=== PATIENT | female | born 1990 | race Hispanic/Latino ===

== ENCOUNTER 2021-07-20 10:59 | Emergency (ER) | payer SELFPAY ==
[2021-07-20 13:18] LABS: Absolute Lymphocytes (CBC) 1.9 K/uL (0.7-4.9); Hematocrit 41.5 % (36.0-45.0); Lymphocytes % 19.3 % (15.3-44.8); MPV 7.2 fL (7.6-11.3); RBC Red Blood Cell Count 4.79 M/uL (3.86-4.86)
[2021-07-20 13:35] LABS: Bilirubin Total 0.7 mg/dL (0.2-1.0); Potassium 4.2 mmol/L (3.5-5.1); Protein, Total 7.8 g/dL (6.4-8.2)
[2021-07-20] MEDS ORDERED: MORPHINE 4 MG/ML SYR ONE (13:41)
[2021-07-20] MEDS ORDERED: ONDANSETRON 4 MG/2 ML VIAL ONE (13:41)
[2021-07-20 13:49] LABS: Urine Blood 2+ (Negative); Urine Glucose Negative (Negative); Urine Protein Trace (Negative); Urine Specific Gravity >=1.030 (1.005-1.030)
--- NOTE | 2021-07-20 14:27 | RAD REPORT ---
EXAM DESCRIPTION: CTAbdomen Pelvis W Contrast - 07/20/2021 2:16 pm CLINICAL HISTORY: Abdominal pain. Abdominal pain, acute, nonlocalized COMPARISON: No comparisons TECHNIQUE: Biphasic CT imaging of the abdomen and pelvis was performed with 100 ml non-ionic IV cont rast. All CT scans are performed using dose optimization technique as appropriate and may include automated exposure control or mA/KV adjustment according to patient size. FINDINGS: The lung bases are clear. The liver demonstrates diffuse fatty infiltration. Spleen, pancreas, adrenal glands and kidneys are w ithin normal limits. Cholecystectomy. No bowel obstruction, free air, free fluid or abscess. 6-7 cm length of sigmoid colon in the left low er quadrant shows moderate surrounding inflammation compatible with diverticulitis. No abscess is see n. The appendix is normal. No evidence of significant lymphadenopathy. No suspicious bony findings. IMPRESSION: Moderate inflammation involving left lower quadrant 6-7 cm length of sigmoid colon parris tible with acute diverticulitis.
[2021-07-20] MEDS ORDERED: FENTANYL CITR 100 MCG/2 ML ONE (15:06)
[2021-07-20] MEDS ORDERED: DICYCLOMINE HCL 20 MG/2 ML AMP IM ONE (15:06)
[2021-07-20] MEDS ORDERED: Levofloxacin 750mg IV 750 MG/150 ML BAG IV ONE (16:47)
[2021-07-20] MEDS ORDERED: METRONIDAZOLE 500mg IVPB 500 MG/100 ML BAG IV ONE (16:47)
[2021-07-20] MEDS ORDERED: PROMETHAZINE INJ 25 MG/ML AMP ONE (18:11)
[2021-07-20] MEDS ORDERED: FAMOTIDINE 20 MG/2 ML VIAL IV ONE (18:11)
--- NOTE | 2021-07-20 19:09 | EDPHYS ---
Physician Documentation [facility] Name: Tish Martinez Age: 31 yrs Sex: Female : 1990 Arrival Date: 07/20/2021 Time: 11:00 Bed 5 Private MD: ED Physician Lior Avendano HPI: 07/20 11:36 This 31 yrs old Female presents to ER via Ambulatory with complaints of Chest jmm Pain, Abdominal Pain, Numbness Of Arm - right. 11:36 The patient presents with abdominal pain. Onset: The symptoms/episode began/occurred jmm gradually, 1 day(s) ago. The symptoms do not radiate. Associated signs and symptoms: Pertinent positives: nausea, Pertinent negatives: diarrhea, vomiting. The symptoms are described as achy. Modifying factors: The symptoms are alleviated by nothing, the symptoms are aggravated by nothing. The patient has not experienced similar symptoms in the past. 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 - Social history:: Smoking status: Patient denies any tobacco usage or history of. ROS: 11:36 Cardiovascular: Negative for chest pain, palpitations, and edema, Respiratory: Negative jmm for shortness of breath, cough, wheezing, and pleuritic chest pain. 11:36 Constitutional: Positive for body aches, chills. 11:36 Abdomen/GI: Positive for abdominal pain, nausea. 11:36 All other systems are negative. Exam: 11:36 Constitutional: This is a well developed, well nourished patient who is awake, alert, jmm and in no acute distress. Head/Face: atraumatic. Eyes: EOMI, no conjunctival erythema appreciated ENT: Moist Mucus Membranes Neck: Trachea midline, Supple Chest/axilla: Normal chest wall appearance and motion. Cardiovascular: Regular rate and rhythm. No edema appreciated Respiratory: Normal respirations, no respiratory distress appreciated 11:36 Skin: General appearance color normal MS/ Extremity: Moves all extremities, no obvious deformities appreciated, no edema noted to the lower extremities Neuro: Awake and alert Psych: Behavior is normal, Mood is normal, Patient is cooperative and pleasant 11:36 Abdomen/GI: Inspection: abdomen appears normal, Bowel sounds: normal, Palpation: soft, mild abdominal tenderness, in the left lower quadrant. Vital Signs: 11:30 BP 137 / 64; Pulse 66; Resp 15; Temp 97.3; Pulse Ox 99% ; Height 5 ft. 0 in. (152.40 jl7 cm); Pain 9/10; 15:12 BP 146 / 76; Pulse 65; Resp 16 S; Pulse Ox 100% on R/A; jd3 16:11 BP 109 / 72; Pulse 63; Resp 16 S; Pulse Ox 100% on R/A; jd3 18:15 BP 107 / 61; Pulse 62; Resp 16 S; Pulse Ox 100% on R/A; jd3 MDM: 11:36 Patient medically screened. [facility] 19:07 Data reviewed: vital signs, nurses notes. Counseling: I had a detailed discussion with feliz the patient and/or guardian regarding: the historical points, exam findings, and any diagnostic results supporting the discharge/admit diagnosis, lab results, radiology results, the need for outpatient follow up, to return to the emergency department if symptoms worsen or persist or if there are any questions or concerns that arise at home. Response to treatment: the patient's symptoms have markedly improved after treatment, and as a result, I will discharge patient. ED course: Patient is alert and nontoxic in appearance NAD. Patient advised to follow-up with GI for further evaluation. Patient otherwise given strict return precautions. Patient understood agrees plan of care.. 07/20 11:43 Order name: CBC with Diff; Complete Time: 13:29 [facility] 07/20 11:43 Order name: CMP; Complete Time: 13:39 [facility] 07/20 11:43 Order name: Lipase; Complete Time: 13:39 [facility] 07/20 11:55 Order name: Troponin High Sensitivity; Complete Time: 13:39 [facility] 07/20 13:49 Order name: Urine Dipstick-Ancillary; Complete Time: 13:57 [facility] 07/20 11:43 Order name: CT Abd/Pelvis - IV Contrast Only; Complete Time: 14:29 [facility] 07/20 11:43 Order name: IV Saline Lock; Complete Time: 13:50 [facility] 07/20 11:43 Order name: Labs collected and sent; Complete Time: 13:13 [facility] 07/20 11:43 Order name: Urine Dipstick-Ancillary (obtain specimen); Complete Time: 13:50 [facility] 07/20 11:43 Order name: Urine Test (obtain specimen); Complete Time: 13:50 [facility] 07/20 11:55 Order name: EKG - Nurse/Tech; Complete Time: 13:27 [facility] Administered Medications: 13:49 Drug: morphine 4 mg Route: IVP; Site: left antecubital; jd3 14:40 Follow up: Response: No adverse reaction; RASS: Alert and Calm (0) jd3 13:50 Drug: Zofran (Ondansetron) 4 mg Route: IVP; Site: left antecubital; jd3 14:50 Follow up: Response: No adverse reaction jd3 15:11 Drug: fentaNYL (PF) 50 mcg Route: IVP; Site: left antecubital; jd3 16:51 Follow up: Response: No adverse reaction; RASS: Alert and Calm (0) ll1 15:11 Drug: Dicyclomine 20 mg Route: IM; Site: right gluteus; jd3 16:51 Follow up: Response: No adverse reaction ll1 16:49 Drug: Flagyl (metroNIDAZOLE) 500 mg Volume: 100 ml; Route: IVPB; Rate: 200 ml/hr; ll1 Infused Over: 30 mins; Site: left antecubital; 19:15 Follow up: Response: No adverse reaction; IV Status: Completed infusion jd3 18:16 Drug: LevaQUIN (levofloxacin) 750 mg Route: IVPB; Site: left antecubital; jd3 19:43 Follow up: Response: No adverse reaction; IV Status: Completed infusion; IV Intake: ll3 200ml 18:16 Drug: Promethazine 12.5 mg Route: IVP; Site: left antecubital; jd3 19:15 Follow up: Response: No adverse reaction jd3 18:16 Drug: Pepcid (famotidine) 20 mg Route: IVP; Site: left antecubital; jd3 19:15 Follow up: Response: No adverse reaction jd3 Disposition Summary: 07/20/21 19:09 Discharge Ordered Location: Home [facility] Condition: Stable [facility] Diagnosis - Acute Diverticulitis without perforation [facility] Followup: [facility] - With: Ash Blackwell MD - When: 2 - 3 days - Reason: Recheck today's complaints, Continuance of care, Re-evaluation by your physician Discharge Instructions: - Discharge Summary Sheet [facility] - Diverticulitis [facility] Forms: - Medication Reconciliation Form [facility] - Thank You Letter [facility] - Antibiotic Education [facility] - Prescription Opioid Use [facility] - Work release form Prescriptions: - ondansetron 4 mg Oral tablet,disintegrating - take 1 tablet by ORAL route every 4-6 hours; 20 tablet; Refills: 0, Product [facility] Selection Permitted - Tylenol-Codeine #3 300 mg-30 mg Oral - take 1 tablet by ORAL route every 4-6 hours; 20 tablet; Refills: 0, Product [facility] Selection Permitted - levofloxacin 750 mg Oral Tablet - take 1 tablet by ORAL route once daily for 10 days; 10 tablet; Refills: 0, [facility] Product Selection Permitted - Flagyl 500 mg Oral Tablet - take 1 tablet by ORAL route every 6 hours for 10 days; 40 tablet; Refills: 0, [facility] Product Selection Permitted Signatures: Dispatcher [employer] Lalo Irvin PA PA jmm Leal, Jahala RN RN jl7 Herberth Torres RN RN jKailey Zarate RN RN ll1 Lynda Ferris RN ll3 Corrections: (The following items were deleted from the chart) 11:34 11:33 Allergies: No Known Allergies; armando roberts
--- NOTE | 2021-07-20 19:09 | ER ---
Nurse's Notes [facility] Name: Tish Martinez Age: 31 yrs Sex: Female : 1990 Arrival Date: 07/20/2021 Time: 11:00 Bed 5 Private MD: Diagnosis: Acute Diverticulitis without perforation Presentation: 07/20 11:06 Note Called pt from [facility], no response. jl7 11:30 Chief complaint: Patient states: Intermittent chest pressure x 2 days, reproducible jl7 with palpation. Lower abdominal cramping and intermittent right arm numbness since yesterday. Denies N/V/D. Coronavirus screen: At this time, the client does not indicate any symptoms associated with coronavirus-19. Ebola Screen: No symptoms or risks identified at this time. Initial Sepsis Screen: Does the patient meet any 2 criteria? No. Patient's initial sepsis screen is negative. Does the patient have a suspected source of infection? No. Patient's initial sepsis screen is negative. Risk Assessment: Do you want to hurt yourself or someone else? Patient reports no desire to harm self or others. Onset of symptoms was July 18, 2021. 11:30 Method Of Arrival: Ambulatory jl7 11:30 Acuity: DANIEL 3 jl7 Triage Assessment: 11:33 General: Appears in no apparent distress. uncomfortable, Behavior is calm, cooperative, jl7 appropriate for age. Pain: Complains of pain in right lower quadrant and left lower quadrant Pain currently is 9 out of 10 on a pain scale. Quality of pain is described as crampy. Cardiovascular: Patient's skin is warm and dry. Respiratory: Airway is patent Respiratory effort is even, unlabored, Respiratory pattern is regular, symmetrical. GI: Patient currently denies diarrhea, nausea, vomiting. Derm: Skin is pink, warm \T\ dry. 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 - Social history:: Smoking status: Patient denies any tobacco usage or history of. Screenin:52 Abuse screen: Denies threats or abuse. Nutritional screening: No deficits noted. jd3 Tuberculosis screening: No symptoms or risk factors identified. Fall Risk Ambulatory Aid- None/Bed Rest/Nurse Assist (0 pts). Gait- Normal/Bed Rest/Wheelchair (0 pts) Mental Status- Oriented to own ability (0 pts). Total [place] Fall Scale indicates No Risk (0-24 pts). Assessment: 13:25 General: Appears in no apparent distress. uncomfortable, Behavior is calm, cooperative, jd3 appropriate for age. General:. Pain: Complains of pain in right lower quadrant and left lower quadrant Pain does not radiate. Quality of pain is described as sharp, Pain began 1 week ago. Neuro: Mackey Agitation-Sedation Scale (RASS): 0 - Alert and Calm Level of Consciousness is awake, alert, obeys commands, Oriented to person, place, time, situation. Cardiovascular: Capillary refill < 3 seconds Patient's skin is warm and dry. Rhythm is regular. Respiratory: Airway is patent Respiratory effort is even, unlabored, Respiratory pattern is regular, symmetrical, Denies cough, shortness of breath. GI: Abdomen is non-distended, Abd is soft X 4 quads Abdomen is tender to palpation in right lower quadrant and left lower quadrant Reports lower abdominal pain, Patient currently denies constipation, diarrhea, nausea, vomiting. : No signs and/or symptoms were reported regarding the genitourinary system. Denies burning with urination, discharge, urinary frequency, urgency. EENT: No signs and/or symptoms were reported regarding the EENT system. Derm: Skin is intact, Skin is dry, Skin is normal, Skin temperature is warm. Musculoskeletal: Circulation, motion, and sensation intact. Range of motion: intact in all extremities. 15:12 Reassessment: Patient appears in no apparent distress at this time. No changes from jd3 previously documented assessment. Patient and/or family updated on plan of care and expected duration. Pain level reassessed. Patient is alert, oriented x 3, equal unlabored respirations, skin warm/dry/pink. 16:11 Reassessment: Patient appears in no apparent distress at this time. No changes from jd3 previously documented assessment. Patient and/or family updated on plan of care and expected duration. Pain level reassessed. Patient is alert, oriented x 3, equal unlabored respirations, skin warm/dry/pink. 18:15 Reassessment: Patient appears in no apparent distress at this time. No changes from jd3 previously documented assessment. Patient and/or family updated on plan of care and expected duration. Pain level reassessed. Patient is alert, oriented x 3, equal unlabored respirations, skin warm/dry/pink. Vital Signs: 11:30 BP 137 / 64; Pulse 66; Resp 15; Temp 97.3; Pulse Ox 99% ; Height 5 ft. 0 in. (152.40 jl7 cm); Pain 9/10; 15:12 BP 146 / 76; Pulse 65; Resp 16 S; Pulse Ox 100% on R/A; jd3 16:11 BP 109 / 72; Pulse 63; Resp 16 S; Pulse Ox 100% on R/A; jd3 18:15 BP 107 / 61; Pulse 62; Resp 16 S; Pulse Ox 100% on R/A; jd3 ED Course: 11:00 Patient arrived in ED. am2 11:04 Lalo Arora PA is PHCP. [facility] 11:04 Lior Avendano MD is Attending Physician. [facility] 11:33 Triage completed. jl7 11:33 Arm band placed on right wrist. jl7 13:01 Herberth Torres, BILL is Primary Nurse. jd3 13:12 Missed attempt(s): 22 gauge in right antecubital area. Bleeding controlled, band aid jd3 applied, catheter tip intact. 13:12 Initial lab(s) drawn, by [facility], sent to lab. jd3 13:15 Missed attempt(s): 22 gauge in left antecubital area. Bleeding controlled, band aid jd3 applied, catheter tip intact. 13:32 Missed attempt(s): 22 gauge in right forearm. Bleeding controlled, band aid applied, ll1 catheter tip intact. 13:35 Inserted saline lock: 22 gauge in left antecubital area, using aseptic technique. ll1 13:52 Patient has correct armband on for positive identification. Bed in low position. Call jd3 light in reach. Side rails up X 1. Client placed on continuous cardiac and pulse oximetry monitoring. NIBP monitoring applied. school bus monitor on. Pulse ox on. NIBP on. 13:53 Patient maintains SpO2 saturation greater than 95% on room air. jd3 14:18 CT Abd/Pelvis - IV Contrast Only In Process Unspecified. EDMS 19:08 Ash Blackwell MD is Referral Physician. m 20:32 No provider procedures requiring assistance completed. IV discontinued, intact, ll3 bleeding controlled, No redness/swelling at site. Pressure dressing applied. Administered Medications: 13:49 Drug: morphine 4 mg Route: IVP; Site: left antecubital; jd3 14:40 Follow up: Response: No adverse reaction; RASS: Alert and Calm (0) jd3 13:50 Drug: Zofran (Ondansetron) 4 mg Route: IVP; Site: left antecubital; jd3 14:50 Follow up: Response: No adverse reaction jd3 15:11 Drug: fentaNYL (PF) 50 mcg Route: IVP; Site: left antecubital; jd3 16:51 Follow up: Response: No adverse reaction; RASS: Alert and Calm (0) ll1 15:11 Drug: Dicyclomine 20 mg Route: IM; Site: right gluteus; jd3 16:51 Follow up: Response: No adverse reaction ll1 16:49 Drug: Flagyl (metroNIDAZOLE) 500 mg Volume: 100 ml; Route: IVPB; Rate: 200 ml/hr; ll1 Infused Over: 30 mins; Site: left antecubital; 19:15 Follow up: Response: No adverse reaction; IV Status: Completed infusion jd3 18:16 Drug: LevaQUIN (levofloxacin) 750 mg Route: IVPB; Site: left antecubital; jd3 19:43 Follow up: Response: No adverse reaction; IV Status: Completed infusion; IV Intake: ll3 200ml 18:16 Drug: Promethazine 12.5 mg Route: IVP; Site: left antecubital; jd3 19:15 Follow up: Response: No adverse reaction jd3 18:16 Drug: Pepcid (famotidine) 20 mg Route: IVP; Site: left antecubital; jd3 19:15 Follow up: Response: No adverse reaction jd3 Intake: 19:43 IV: 200ml; Total: 200ml. ll3 Outcome: 19:09 Discharge ordered by . jmm 20:32 Discharged to home ambulatory. ll3 20:32 Condition: stable 20:32 Discharge instructions given to patient, family, Instructed on discharge instructions, follow up and referral plans. medication usage, Demonstrated understanding of instructions, follow-up care, medications, Prescriptions given X 4. 20:33 Patient left the ED. ll3 Signatures: Dispatcher [employer] EDMS Lalo Arora PA PA jmm Leal, Jahala, RN RN jl7 Shayy Hernandez Jonathon, RN RN jKailey Zarate RN RN ll1 Lynda Ferris RN RN ll3 Corrections: (The following items were deleted from the chart) 11:34 11:33 Allergies: No Known Allergies; armando jlMarquez
[2021-07-20 20:59] VITALS: TEMP 97.3
[2021-07-20 21:00] VITALS: O2SAT 100
[2021-07-20 21:03] VITALS: BP 107/61
--- NOTE | 2021-07-21 07:32 | EKG ---
Test Date: 2021-07-20 Test Time: 13:21:00 Manager Transportation: MIGUEL MEASUREMENT RESULTS: Intervals: Rate: 60 UT: 146 QRSD: 74 QT: 388 QTc: 388 [place]: P: 44 UT: 146 QRS: 61 T: 45 INTERPRETIVE STATEMENTS: Normal sinus rhythm Normal ECG No previous ECG available for comparison Electronically Signed On 07-21-21 07:29:56 CDT by David Merlos
== END 2021-07-20 20:33 | disposition home or self-care (01) ==
LOC: ER 10:59
DX: K57.32 Diverticulitis of large intestine without perforation or abscess without bleeding (principal)
CPT/HCPCS: 36415; 74177; 80053; 81003; 83690; 84484; 85025; 93005; 96365; 96366; 96372; 96375; 99285; J0500; J2405; J2550; J3010; J3490; Q9967

== ENCOUNTER 2022-05-08 20:27 | Emergency (ER) | payer SELFPAY ==
[2022-05-08 21:16] LABS: Urine Blood Trace-intact (Negative); Urine Glucose Negative (Negative); Urine Protein Negative (Negative); Urine Specific Gravity 1.015 (1.005-1.030); Urine pH 8.5 (5.0-7.0)
[2022-05-08 21:31] LABS: Urine Specific Gravity/Preg 1.015 (1.005-1.030)
[2022-05-08] MEDS ORDERED: ONDANSETRON 4 MG/2 ML VIAL ONE (21:36)
[2022-05-08] MEDS ORDERED: NA CHLORIDE 0.9% 1,000 ML ONE (21:36)
[2022-05-08] MEDS ORDERED: HYDROMORPHONE HCL 1 MG/ML INJ ONE (21:36)
[2022-05-08 21:54] LABS: Urine Bacteria <20 /HPF (<20); Urine Mucus Slight /HPF (None Seen); Urine RBC None Seen /HPF (None Seen)
[2022-05-08 21:56] LABS: Absolute Lymphocytes (CBC) 1.5 K/uL (0.7-4.9); Hematocrit 43.1 % (36.0-45.0); Lymphocytes % 10.1 % (15.3-44.8); MCV 86.5 fL (80-100); MPV 7.5 fL (7.6-11.3); RBC Red Blood Cell Count 4.99 M/uL (3.86-4.86)
[2022-05-08 22:34] LABS: Albumin 4.3 g/dL (3.4-5.0); Bilirubin Total 0.7 mg/dL (0.2-1.0); Potassium 3.6 mmol/L (3.5-5.1); Protein, Total 8.1 g/dL (6.4-8.2)
--- NOTE | 2022-05-09 00:24 | ER ---
Nurse's Notes [facility] Name: Tish Martinez Age: 32 yrs Sex: Female : 1990 Arrival Date: 05/08/2022 Time: 20:31 Bed 7 Private MD: Diagnosis: Diverticulitis of large intestine without perforation or abscess without bleeding Presentation: 05/08 20:53 Chief complaint: Patient states: C/o abdominal pain, I ate crawfish yesterday and I ll3 have been vomiting ever since. Coronavirus screen: Vaccine status: Patient reports being unvaccinated. muscle pain, nausea, vomiting. Ebola Screen: No symptoms or risks identified at this time. Risk Assessment: Do you want to hurt yourself or someone else? Patient reports no desire to harm self or others. Onset of symptoms was May 07, 2022. 20:53 Method Of Arrival: Ambulatory 3 20:53 Acuity: DANIEL 3 3 05/09 02:35 Initial Sepsis Screen: Does the patient meet any 2 criteria? No. Patient's initial aa9 sepsis screen is negative. Does the patient have a suspected source of infection? No. Patient's initial sepsis screen is negative. Triage Assessment: 05/08 21:00 General: Appears in no apparent distress. obese, well groomed, Behavior is cooperative, aa9 anxious. Pain: Complains of pain in pelvis. 21:00 Neuro: Level of Consciousness is awake, alert, obeys commands, Oriented to person, aa9 place, time, situation. Cardiovascular: Patient's skin is warm and dry. Respiratory: Airway is patent Respiratory effort is even, unlabored. GI: Abdomen is obese, Reports diarrhea, nausea, vomiting. : No signs and/or symptoms were reported regarding the genitourinary system. Derm: Skin is intact, is healthy with good turgor. 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 - Social history:: Smoking status: Patient/guardian denies using tobacco. Screenin:04 [facility] ED Fall Risk Assessment (Adult) History of falling in the last 3 months, aa9 including since admission No falls in past 3 months (0 pts) Confusion or Disorientation No (0 pts) Intoxicated or Sedated No (0 pts) Impaired Gait No (0 pts) Mobility Assist Device Used No (0 pt) Altered Elimination No (0 pt) Score/Fall Risk Level 0 - 2 = Low Risk Oriented to surroundings, Educated pt \T\ family on fall prevention, incl call for assistance when getting out of bed. Abuse screen: Denies threats or abuse. Denies injuries from another. Nutritional screening: Has had N/V for 3 or more days. Tuberculosis screening: No symptoms or risk factors identified. Assessment: 22:30 Reassessment: Patient appears in no apparent distress at this time. Patient and/or aa9 family updated on plan of care and expected duration. Pain level reassessed. Patient is alert, oriented x 3, equal unlabored respirations, skin warm/dry/pink. GI: Abdomen is obese, Reports nausea, vomiting. 22:30 Pain: Complains of pain in pelvis. Respiratory: Airway is patent Respiratory effort is aa9 even, unlabored. 05/09 00:43 Reassessment: Patient appears in no apparent distress at this time. Patient and/or aa9 family updated on plan of care and expected duration. Pain level reassessed. Patient is alert, oriented x 3, equal unlabored respirations, skin warm/dry/pink. discharge pending IV medication infusion. 02:20 Reassessment: Patient appears in no apparent distress at this time. pt c/o nausea aa9 notified provider. 02:20 Respiratory: Airway is patent Respiratory effort is even, unlabored. aa9 02:30 Reassessment: Patient appears in no apparent distress at this time. Patient and/or aa9 family updated on plan of care and expected duration. Pain level reassessed. Patient is alert, oriented x 3, equal unlabored respirations, skin warm/dry/pink. Vital Signs: 05/08 20:53 BP 128 / 86; Pulse 96; Resp 18; Temp 99.7(O); Pulse Ox 99% on R/A; Weight 78.02 kg (R); ll3 Height 5 ft. 0 in. (152.40 cm) (R); Pain 9/10; 21:00 BP 121 / 78; Pulse 86; Resp 19 S; Pulse Ox 98% on R/A; aa9 22:30 BP 118 / 72; Pulse 89; Resp 19 S; Pulse Ox 99% on R/A; aa9 23:00 BP 119 / 71; Pulse 89; Resp 19 S; Pulse Ox 99% on R/A; aa9 05/09 00:24 BP 124 / 68; Pulse 90; Resp 16 S; Pulse Ox 99% on R/A; aa9 01:55 BP 122 / 74; Pulse 89; Resp 17 S; Pulse Ox 98% on R/A; aa9 05/08 20:53 Body Mass Index 33.59 (78.02 kg, 152.40 cm) ll3 ED Course: 05/08 20:31 Patient arrived in ED. ja2 20:31 Israel Marks MD is Attending Physician. sp3 20:56 Triage completed. ll3 20:56 Arm band placed on. ll3 21:47 Missed attempt(s): 20 gauge in left antecubital area. Bleeding controlled, band aid aa9 applied, catheter tip intact. 21:47 Missed attempt(s): 22 gauge in right antecubital area. Bleeding controlled, band aid aa9 applied, catheter tip intact. 21:50 CBC with Diff Sent. aa9 21:50 CMP Sent. aa9 21:50 Lipase Sent. aa9 21:50 Urine Microscopic Only Sent. aa9 21:50 Urine --Ancillary (enter results) Sent. aa9 22:40 Missed attempt(s): 20 gauge in right antecubital area. Bleeding controlled, band aid bb applied, catheter tip intact. Inserted saline lock: 20 gauge in left antecubital area, using aseptic technique. 05/09 00:15 Giulia Shah, RN is Primary Nurse. aa9 02:35 Patient has correct armband on for positive identification. Bed in low position. Side aa9 rails up X2. Adult w/ patient. Pulse ox on. NIBP on. 02:35 No provider procedures requiring assistance completed. IV discontinued, intact, aa9 bleeding controlled, No redness/swelling at site. Pressure dressing applied. 02:40 CT Abd/Pelvis - IV Contrast Only In Process Unspecified. EDMS Administered Medications: 05/08 22:42 Drug: Zofran (Ondansetron) 4 mg Route: IVP; Site: left antecubital; aa9 05/09 02:22 Follow up: Response: No adverse reaction 9 05/08 22:42 Drug: Dilaudid (HYDROmorphone) 1 mg Route: IVP; Site: left antecubital; aa9 05/09 00:40 Follow up: Response: No adverse reaction 9 05/08 22:42 Drug: NS 0.9% 1000 ml Route: IV; Rate: 1 bolus; Site: left antecubital; aa9 05/09 01:21 Follow up: Response: No adverse reaction; IV Status: Completed infusion; IV Intake: aa9 1000ml 00:40 Drug: Flagyl (metroNIDAZOLE) 500 mg Volume: 100 ml; Route: IVPB; Rate: 200 ml/hr; aa9 Infused Over: 30 mins; Site: left antecubital; 01:21 Follow up: Response: No adverse reaction; IV Status: Completed infusion; IV Intake: aa9 100ml 01:21 Drug: Ciprofloxacin 400 mg Volume: 200 ml; Route: IVPB; Infused Over: 60 mins; Site: aa9 left antecubital; 02:21 Follow up: Response: No adverse reaction; IV Status: Completed infusion; IV Intake: aa9 200ml 02:32 Drug: Zofran (Ondansetron) 8 mg Route: IVP; Site: left antecubital; aa9 02:32 Follow up: Response: No adverse reaction aa9 Medication: 02:35 VIS not applicable for this client. aa9 Intake: 01:21 IV: 100ml; Total: 100ml. aa9 01:21 IV: 1000ml; Total: 1100ml. aa9 02:21 IV: 200ml; Total: 1300ml. aa9 Outcome: 00:22 Discharge ordered by . sp3 02:36 Discharged to home ambulatory, with family. aa9 02:36 Condition: stable 02:36 Discharge instructions given to patient, Instructed on discharge instructions, follow up and referral plans. medication usage, Demonstrated understanding of instructions, follow-up care, medications, Prescriptions given X 2. 02:38 Patient left the ED. aa9 Signatures: Dispatcher [employer] EDKirti Fan RN RN Israel Liz MD MD sp3 Charley Tyson Lynsea RN RN ll3 Giulia Shah, RN RN aa9
--- NOTE | 2022-05-09 00:24 | EDPHYS ---
Physician Documentation [facility] Name: Tish Martinez Age: 32 yrs Sex: Female : 1990 Arrival Date: 05/08/2022 Time: 20:31 Bed 7 Private MD: ED Physician Israel Marks HPI: 05/08 21:17 This 32 yrs old Female presents to ER via Ambulatory with complaints of sp3 Nausea/Vomiting, Abdominal Pain. 21:17 32-year-old female with no significant past medical history past surgical history sp3 significant for BTL, cholecystectomy, tonsil and adenectomy presents to the ED with chief complaint of diffuse abdominal pain, nausea, vomiting, diarrhea x2 since yesterday p.m. after eating "bad crawfish". Patient denies fever, URI symptoms, headache, back pain, rash, urinary symptoms, [employer] symptoms, or any other symptoms on review of systems at this time.. 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 - Social history:: Smoking status: Patient/guardian denies using tobacco. ROS: 21:18 Constitutional: Negative for fever, chills, and weight loss, Eyes: Negative for injury, sp3 pain, redness, and discharge, Neck: Negative for injury, pain, and swelling, Cardiovascular: Negative for chest pain, palpitations, and edema, Respiratory: Negative for shortness of breath, cough, wheezing, and pleuritic chest pain, MS/Extremity: Negative for injury and deformity, Skin: Negative for injury, rash, and discoloration, Neuro: Negative for headache, weakness, numbness, tingling, and seizure, Psych: Negative for depression, anxiety, suicide ideation, homicidal ideation, and hallucinations, Allergy/Immunology: Negative for hives, rash, and allergies, Endocrine: Negative for neck swelling, polydipsia, polyuria, polyphagia, and marked weight changes, Hematologic/Lymphatic: Negative for swollen nodes, abnormal bleeding, and unusual bruising. 21:18 All other systems are negative. Exam: 21:18 Constitutional: This is a well developed, well nourished patient who is awake, alert, sp3 and in no acute distress. Head/Face: Normocephalic, atraumatic. Eyes: Pupils equal round and reactive to light, extra-ocular motions intact. Lids and lashes normal. Conjunctiva and sclera are non-icteric and not injected. Cornea within normal limits. Periorbital areas with no swelling, redness, or edema. ENT: Nares patent. No nasal discharge, no septal abnormalities noted. External auditory canals are clear. Oropharynx with no redness, swelling, or masses, exudates, or evidence of obstruction, uvula midline. Mucous membranes moist. Neck: Trachea midline, no thyromegaly or masses palpated, and no cervical lymphadenopathy. Supple, full range of motion without nuchal rigidity, or vertebral point tenderness. No Meningismus. Chest/axilla: Normal chest wall appearance and motion. Nontender with no deformity. No lesions are appreciated. Cardiovascular: Regular rate and rhythm with a normal S1 and S2. No gallops, murmurs, or rubs. Normal PMI, no JVD. No pulse deficits. Respiratory: Lungs have equal breath sounds bilaterally, clear to auscultation and percussion. No rales, rhonchi or wheezes noted. No increased work of breathing, no retractions or nasal flaring. Back: No spinal tenderness. No costovertebral tenderness. Full range of motion. Skin: Warm, dry with normal turgor. Normal color with no rashes, no lesions, and no evidence of cellulitis. MS/ Extremity: Pulses equal, no cyanosis. Neurovascular intact. Full, normal range of motion. Neuro: Awake and alert, GCS 15, oriented to person, place, time, and situation. Cranial nerves II-XII grossly intact. Motor strength 5/5 in all extremities. Sensory grossly intact. Cerebellar exam normal. Normal gait. Psych: Awake, alert, with orientation to person, place and time. Behavior, mood, and affect are within normal limits. 21:18 Abdomen/GI: Abdominal pain to palpation without peritoneal signs. No rebound or guarding noted. Bowel sounds are present and hyperactive.. Vital Signs: 20:53 BP 128 / 86; Pulse 96; Resp 18; Temp 99.7(O); Pulse Ox 99% on R/A; Weight 78.02 kg (R); ll3 Height 5 ft. 0 in. (152.40 cm) (R); Pain 9/10; 21:00 BP 121 / 78; Pulse 86; Resp 19 S; Pulse Ox 98% on R/A; aa9 22:30 BP 118 / 72; Pulse 89; Resp 19 S; Pulse Ox 99% on R/A; aa9 23:00 BP 119 / 71; Pulse 89; Resp 19 S; Pulse Ox 99% on R/A; aa9 05/09 00:24 BP 124 / 68; Pulse 90; Resp 16 S; Pulse Ox 99% on R/A; aa9 01:55 BP 122 / 74; Pulse 89; Resp 17 S; Pulse Ox 98% on R/A; aa9 05/08 20:53 Body Mass Index 33.59 (78.02 kg, 152.40 cm) ll3 MDM: 05/08 21:04 Patient medically screened. sp3 21:19 Data reviewed: vital signs, nurses notes. ED course: 32-year-old female with abdominal sp3 pain and possible food related symptoms. Differential diagnosis includes gastroenteritis, colitis, appendicitis, viral syndrome, among others. I am not highly suspicious for sepsis, shock, etiology, [employer] etiology, or any other critical findings at this time. Work-up will include laboratory values, IV fluids, nausea and pain control with Zofran and Dilaudid, CT scan of the abdomen and pelvis, urine analysis. If patient feels better, likely discharge home with supportive care.. 05/09 00:20 ED course: CT demonstrates diverticulitis in the sigmoid colon and descending colon. sp3 WBC count of 14 noted. I had an extensive conversation with patient on bowel habits and necessity for fiber in her diet as well as OTC Colace. We will administer Cipro and Flagyl IV and discharge patient home on those medications along with counseling for proper diet.. 05/08 21:15 Order name: CBC with Diff sp3 05/08 21:15 Order name: CMP sp3 05/08 21:15 Order name: Lipase sp3 05/08 21:15 Order name: Urine Microscopic Only sp3 05/08 21:17 Order name: Urine Dipstick-Ancillary; Complete Time: 23:05 EDMS 05/08 21:22 Order name: Urine --Ancillary (enter results) rv1 05/08 21:15 Order name: CT Abd/Pelvis - IV Contrast Only sp3 05/08 21:31 Order name: Urine --Ancillary; Complete Time: 23:05 EDMS 05/08 21:54 Order name: Urine Microscopic Only; Complete Time: 23:05 EDMS 05/08 21:57 Order name: CBC with Automated Diff; Complete Time: 23:05 EDMS 05/08 22:34 Order name: Comprehensive Metabolic Panel; Complete Time: 23:05 EDMS 05/08 22:34 Order name: Lipase; Complete Time: 23:05 EDMS 05/08 21:15 Order name: IV Saline Lock; Complete Time: 22:42 sp3 05/08 21:15 Order name: Labs collected and sent; Complete Time: 21:50 sp3 05/08 21:15 Order name: Urine Dipstick-Ancillary (obtain specimen); Complete Time: 21:20 sp3 05/08 21:15 Order name: Urine Test (obtain specimen); Complete Time: 21:20 sp3 Administered Medications: 05/08 22:42 Drug: Zofran (Ondansetron) 4 mg Route: IVP; Site: left antecubital; 9 05/09 02:22 Follow up: Response: No adverse reaction [facility] 05/08 22:42 Drug: Dilaudid (HYDROmorphone) 1 mg Route: IVP; Site: left antecubital; 9 05/09 00:40 Follow up: Response: No adverse reaction 05/08 22:42 Drug: NS 0.9% 1000 ml Route: IV; Rate: 1 bolus; Site: left antecubital; 05/09 01:21 Follow up: Response: No adverse reaction; IV Status: Completed infusion; IV Intake: aa9 1000ml 00:40 Drug: Flagyl (metroNIDAZOLE) 500 mg Volume: 100 ml; Route: IVPB; Rate: 200 ml/hr; aa9 Infused Over: 30 mins; Site: left antecubital; 01:21 Follow up: Response: No adverse reaction; IV Status: Completed infusion; IV Intake: aa9 100ml 01:21 Drug: Ciprofloxacin 400 mg Volume: 200 ml; Route: IVPB; Infused Over: 60 mins; Site: aa left antecubital; 02:21 Follow up: Response: No adverse reaction; IV Status: Completed infusion; IV Intake: aa9 200ml 02:32 Drug: Zofran (Ondansetron) 8 mg Route: IVP; Site: left antecubital; aa9 02:32 Follow up: Response: No adverse reaction aa9 Disposition Summary: 05/09/22 00:22 Discharge Ordered Location: Home sp3 Condition: Stable sp3 Diagnosis - Diverticulitis of large intestine without perforation or abscess without bleeding sp3 Followup: sp3 - With: Private Physician - When: Upon discharge from the Emergency Department - Reason: Continuance of care Discharge Instructions: - Discharge Summary Sheet sp3 - High-Fiber Diet sp3 - Diverticulitis sp3 Forms: - Medication Reconciliation Form sp3 - Thank You Letter sp3 - Antibiotic Education sp3 - Prescription Opioid Use sp3 Prescriptions: - Cipro 500 mg Oral Tablet - take 1 tablet by ORAL route every 12 hours for 10 days; 20 tablet; Refills: 0, sp3 Product Selection Permitted - Flagyl 500 mg Oral Tablet - take 1 tablet by ORAL route every 8 hours for 10 days; 30 tablet; Refills: 0, sp3 Product Selection Permitted Signatures: Dispatcher [employer] Israel Landry MD MD sp3 Lynda Ferris RN RN 3 Giulia Shah RN RN aa9
[2022-05-09] MEDS ORDERED: METRONIDAZOLE 500mg IVPB 500 MG/100 ML BAG IV ONE (00:32)
[2022-05-09] MEDS ORDERED: CIPROFLOXACIN 400mg IV 400 MG/200 ML BAG IV ONE (00:32)
[2022-05-09] MEDS ORDERED: ONDANSETRON 4 MG/2 ML VIAL ONE (02:31)
[2022-05-09 03:36] VITALS: TEMP 99.7
[2022-05-09 03:38] VITALS: O2SAT 99
[2022-05-09 03:39] VITALS: BP 119/71
--- NOTE | 2022-05-09 11:55 | RAD REPORT ---
EXAM DESCRIPTION: CT - Abdomen Pelvis W Contrast - 05/09/2022 6:37 am CLINICAL HISTORY: The patient is 32 years old and is Female; ABD PAIN TECHNIQUE: Axial computed tomography images of the abdomen and pelvis with intravenous contrast. S agittal and coronal reformatted images were created and reviewed. This CT exam was performed using one or more of the following dose reduction techniques: automated exposure control, adjustment of t he mA and/or kV according to patient size, and/or use of iterative reconstruction technique. COMPARISON: CT of the abdomen and pelvis July 20, 2021 FINDINGS: LUNG BASES: Unremarkable. No mass. No consolidation. ABDOMEN: LIVER: The liver is enlarged and diffusely fatty. GALLBLADDER AND BILE DUCTS: Surgical clips are present in the right upper quadrant, consistent w ith previous cholecystectomy. PANCREAS: No ductal dilation. No mass. SPLEEN: Unremarkable. ADRENALS: Unremarkable. No mass. KIDNEYS AND URETERS: Unremarkable. The kidneys enhance symmetrically. No obstructing renal or ur eteral calculus is seen. No hydronephrosis or hydroureter. No perinephric fluid or stranding. STOMACH AND BOWEL: The stomach is decompressed. The small bowel is normal in caliber. Stool is p resent throughout colon. Scattered colonic diverticula are noted. Colonic wall thickening with surrou nding inflammatory stranding involving the distal descending/proximal sigmoid colon is present. There is no bowel obstruction. PELVIS: APPENDIX: The appendix is normal in caliber without surrounding inflammation. BLADDER: Unremarkable. No mass. REPRODUCTIVE: Unremarkable as visualized. ABDOMEN and PELVIS: INTRAPERITONEAL SPACE: Mild adjacent fluid tracking down the left paracolic gutter is noted. N o free air. BONES/JOINTS: No acute fracture. SOFT TISSUES: The soft tissues are normal. VASCULATURE: Unremarkable. No abdominal aortic aneurysm. LYMPH NODES: Unremarkable. No enlarged lymph nodes. IMPRESSION: Findings consistent with acute distal descending/sigmoid colon diverticulitis. Electronically signed by: Maricarmen Obrien MD 05/08/2022 11:14 PM DERMATOLOGIST MANAGING PARTNER Due to temporary technical issues with the PACS/Fluency reporting system, reports are being signed by the in house radiologists without review as a courtesy to insure prompt reporting. The interpreting radiologist is fully responsible for the content of the report.
== END 2022-05-09 02:38 | disposition home or self-care (01) ==
LOC: ER 20:27
DX: K57.32 Diverticulitis of large intestine without perforation or abscess without bleeding (principal)
CPT/HCPCS: 36415; 74177; 80053; 81003; 81015; 81025; 83690; 85025; 96361; 96365; 96367; 96375; 99284; J0744; J1170; J2405; J7030; Q9967

== ENCOUNTER → 2023-04-14 | Emergency (ER) | payer OTHER, SELFPAY ==
[~2023-04-14] MED LIST: ACETAMINOPHEN 500 MG TAB ONE
--- NOTE | 2023-04-14 22:03 | RAD REPORT ---
EXAM DESCRIPTION: Stefanie Single View04/14/2023 9:57 pm CLINICAL HISTORY: Cough COMPARISON: none FINDINGS: The lungs appear clear of acute infiltrate. The heart is normal size IMPRESSION: No acute abnormalities displayed
--- NOTE | 2023-04-14 23:16 | ER ---
Nurse's Notes [facility] Name: Tish Martinez Age: 33 yrs Sex: Female : 1990 Arrival Date: 04/14/2023 Time: 20:14 Bed 19 Private MD: Diagnosis: Viral infection, unspecified Presentation: 04/14 20:26 Chief complaint: Patient states: reports flu-like symptoms for 4 days. cp4 20:26 Method Of Arrival: Ambulatory cp4 20:36 Coronavirus screen: Client denies travel out of the [place] in the last 14 days. At this cp4 time, the client does not indicate any symptoms associated with coronavirus-19. Ebola Screen: Patient negative for fever greater than or equal to 101.5 degrees Fahrenheit, and additional compatible Ebola Virus Disease symptoms Patient denies exposure to infectious person. Patient denies travel to an Ebola-affected area in the 21 days before illness onset. No symptoms or risks identified at this time. Initial Sepsis Screen: Does the patient meet any 2 criteria? No. Patient's initial sepsis screen is negative. Does the patient have a suspected source of infection? No. Patient's initial sepsis screen is negative. Risk Assessment: Do you want to hurt yourself or someone else? Patient reports no desire to harm self or others. Onset of symptoms was April 10, 2022. 20:36 Acuity: DANIEL 3 cp4 Triage Assessment: 20:37 General: Appears in no apparent distress. Behavior is calm, cooperative, appropriate cp4 for age. Pain: Complains of pain in headache. Respiratory:. Historical: - Allergies: 20:37 Vitamin; cp4 - PSHx: 20:37 Cholecystectomy; Ligation of fallopian tube; Tonsillectomy; cp4 - Immunization history:: Adult Immunizations up to date. - Social history:: Smoking status: Patient denies any tobacco usage or history of. Screenin:35 [facility] ED Fall Risk Assessment (Adult) History of falling in the last 3 months, tm6 including since admission No falls in past 3 months (0 pts). Abuse screen: Denies threats or abuse. Denies injuries from another. Nutritional screening: No deficits noted. Tuberculosis screening: No symptoms or risk factors identified. Assessment: 20:35 General: Appears uncomfortable, Behavior is calm, cooperative. Pain: Complains of pain tm6 in face Pain currently is 9 out of 10 on a pain scale. Quality of pain is described as aching, Also complains of lightheadedness. Neuro: Level of Consciousness is awake, alert, obeys commands, Oriented to person, place, time, situation. Cardiovascular: Capillary refill < 3 seconds Patient's skin is warm and dry. Respiratory: Reports cough that is pain with cough Airway is patent Respiratory effort is even, unlabored, Respiratory pattern is regular, symmetrical. GI: Abdomen is round non-distended. : No signs and/or symptoms were reported regarding the genitourinary system. EENT: Reports nasal congestion. Derm: No signs and/or symptoms reported regarding the dermatologic system. Musculoskeletal: No signs and/or symptoms reported regarding the musculoskeletal system. 22:46 Reassessment: No changes from previously documented assessment. Patient and/or family tm6 updated on plan of care and expected duration. Pain level reassessed. Patient is alert, oriented x 3, equal unlabored respirations, skin warm/dry/pink. 23:19 Reassessment: Patient appears in no apparent distress at this time. No changes from tm6 previously documented assessment. Patient and/or family updated on plan of care and expected duration. Pain level reassessed. Patient is alert, oriented x 3, equal unlabored respirations, skin warm/dry/pink. Vital Signs: 20:36 BP 106 / 58; Pulse 97; Resp 18; Temp 98.7; Pulse Ox 98% ; Weight 79.38 kg; Height 5 ft. cp4 0 in. ; Pain 8/10; 20:40 BP 106 / 67; Pulse 101; Pulse Ox 98% on R/A; tm6 21:31 BP 116 / 83; Pulse 111; Pulse Ox 100% on R/A; tm6 22:45 BP 127 / 66; Pulse 90; Pulse Ox 98% on R/A; tm6 22:46 Pain 3/10; tm6 23:20 BP 118 / 78; Pulse 87; Pulse Ox 96% on R/A; tm6 20:36 Body Mass Index 34.18 (79.38 kg, 152.4 cm) cp4 20:36 Pain Scale: Adult cp4 22:46 Pain Scale: Adult tm6 ED Course: 20:18 Patient arrived in ED. es 20:28 Michelle Knutson is Attending Physician. ci 20:30 Liane Terry, RN is Primary Nurse. tm6 20:35 Patient has correct armband on for positive identification. Bed in low position. Call tm6 light in reach. Side rails up X 1. Provided Education on: plan of care. Client placed on continuous cardiac and pulse oximetry monitoring. NIBP monitoring applied. Door closed. Noise minimized. Warm blanket given. 20:35 Arm band placed on right wrist. tm6 20:37 Triage completed. cp4 20:40 COVID-19 SARS RT PCR Sent. tm6 20:40 Flu Sent. tm6 21:59 Chest Single View XRAY In Process Unspecified. EDMS 23:24 No provider procedures requiring assistance completed. Patient did not have IV access tm6 during this emergency room visit. Administered Medications: 21:38 Drug: Acetaminophen PO 1000 mg PO once Route: PO; tm6 Medication: 20:35 VIS not applicable for this client. tm6 Outcome: 23:15 Discharge ordered by MD. ci 23:24 Discharged to home ambulatory, with family, tm6 23:24 Condition: stable 23:24 Discharge instructions given to patient, family, Instructed on discharge instructions, follow up and referral plans. medication usage, Demonstrated understanding of instructions, follow-up care, medications, Prescriptions given X 1, 23:25 Patient left the ED. tm6 Signatures: Dispatcher [employer] Susana Tejada Christina cp4 Michelle Knutson Tawney, RN RN tm6
--- NOTE | 2023-04-14 23:16 | EDPHYS ---
Physician Documentation [facility] Name: Tish Martinez Age: 33 yrs Sex: Female : 1990 Arrival Date: 04/14/2023 Time: 20:14 Bed 19 Private MD: ED Physician Michelle Knutson HPI: 04/14 22:28 This 33 yrs old Female presents to ER via Ambulatory with complaints of Cough, ci Congestion, Headache, No taste or smell. 22:28 Patient is a 33-year-old female who presents to the ED with URI symptoms that began 4 ci days ago. She endorses cough, congestion, runny nose, headache, myalgias, subjective fevers. Patient's son has been sick with similar symptoms.. Historical: - Allergies: 20:37 Vitamin; cp4 - PSHx: 20:37 Cholecystectomy; Ligation of fallopian tube; Tonsillectomy; cp4 - Immunization history:: Adult Immunizations up to date. - Social history:: Smoking status: Patient denies any tobacco usage or history of. ROS: 22:28 Constitutional: Negative for fever, chills, and weight loss, ci 22:28 ENT: Positive for rhinorrhea, sinus congestion, 22:28 Cardiovascular: Negative for chest pain, orthopnea, palpitations, 22:28 Respiratory: Positive for cough, Negative for shortness of breath, wheezing, 22:28 Abdomen/GI: Negative for abdominal pain, nausea, vomiting, and diarrhea, 22:28 Skin: Negative for burn, cellulitis, ecchymosis, 22:28 Cardiovascular: Positive for ci Exam: 22:28 Constitutional: This is a well developed, well nourished patient who is awake, alert, ci and in no acute distress. Head/Face: Normocephalic, atraumatic. Eyes: Pupils equal round and reactive to light, extra-ocular motions intact. Lids and lashes normal. Conjunctiva and sclera are non-icteric and not injected. Cornea within normal limits. Periorbital areas with no swelling, redness, or edema. ENT: Nares patent. No nasal discharge, no septal abnormalities noted. Tympanic membranes are normal and external auditory canals are clear. Oropharynx with no redness, swelling, or masses, exudates, or evidence of obstruction, uvula midline. Mucous membranes moist. Neck: Trachea midline, no thyromegaly or masses palpated, and no cervical lymphadenopathy. Supple, full range of motion without nuchal rigidity, or vertebral point tenderness. No Meningismus. Chest/axilla: Normal chest wall appearance and motion. Nontender with no deformity. No lesions are appreciated. Cardiovascular: Regular rate and rhythm with a normal S1 and S2. No gallops, murmurs, or rubs. Normal PMI, no JVD. No pulse deficits. Respiratory: Lungs have equal breath sounds bilaterally, clear to auscultation and percussion. No rales, rhonchi or wheezes noted. No increased work of breathing, no retractions or nasal flaring. Abdomen/GI: Soft, non-tender, with normal bowel sounds. No distension or tympany. No guarding or rebound. No evidence of tenderness throughout. Back: No spinal tenderness. No costovertebral tenderness. Full range of motion. Skin: Warm, dry with normal turgor. Normal color with no rashes, no lesions, and no evidence of cellulitis. MS/ Extremity: Pulses equal, no cyanosis. Neurovascular intact. Full, normal range of motion. Neuro: Awake and alert, GCS 15, oriented to person, place, time, and situation. Cranial nerves II-XII grossly intact. Motor strength 5/5 in all extremities. Sensory grossly intact. Cerebellar exam normal. Normal gait. Psych: Awake, alert, with orientation to person, place and time. Behavior, mood, and affect are within normal limits. 22:28 Cardiovascular: No gallops, murmurs, or rubs. Normal PMI, no JVD. No pulse deficits. ci 22:28 Cardiovascular: Rate: normal, actual rate is 92 bpm, Rhythm: regular, Vital Signs: 20:36 BP 106 / 58; Pulse 97; Resp 18; Temp 98.7; Pulse Ox 98% ; Weight 79.38 kg; Height 5 ft. cp4 0 in. ; Pain 8/10; 20:40 BP 106 / 67; Pulse 101; Pulse Ox 98% on R/A; tm6 21:31 BP 116 / 83; Pulse 111; Pulse Ox 100% on R/A; tm6 22:45 BP 127 / 66; Pulse 90; Pulse Ox 98% on R/A; tm6 22:46 Pain 3/10; tm6 23:20 BP 118 / 78; Pulse 87; Pulse Ox 96% on R/A; tm6 20:36 Body Mass Index 34.18 (79.38 kg, 152.4 cm) cp4 20:36 Pain Scale: Adult cp4 22:46 Pain Scale: Adult tm6 MDM: 20:28 Patient medically screened. ci 23:13 Differential Diagnosis: Bronchitis Influenza Upper Respiratory Infection Sinusitis ci Viral Syndrome Pneumonia. Data reviewed: vital signs, nurses notes, radiologic studies, plain films. 04/14 20:31 Order name: COVID-19 SARS RT PCR; Complete Time: 22:27 ci 04/14 20:31 Order name: Flu; Complete Time: 22:27 ci 04/14 20:31 Order name: Chest Single View XRAY; Complete Time: 22:27 ci Administered Medications: 21:38 Drug: Acetaminophen PO 1000 mg PO once Route: PO; tm6 Disposition Summary: 04/14/23 23:15 Discharge Ordered Notes: Location: Home ci Condition: Stable ci Diagnosis - Viral infection, unspecified ci Followup: ci - With: Private Physician - When: 1 - 2 days - Reason: Recheck today's complaints, Re-evaluation by your physician Discharge Instructions: - Discharge Summary Sheet ci - Viral Respiratory Infection, [id number] ci - Viral Illness, Adult ci Forms: - Medication Reconciliation Form ci - Thank You Letter ci - Antibiotic Education ci - Prescription Opioid Use ci - Patient Portal Instructions ci - Leadership Thank You Letter ci Prescriptions: - Tessalon Perles 100 mg Oral Capsule - take 1 capsule ORAL route every 8 hours As needed; 15 capsule; Refills: 0, ci Product Selection Permitted Signatures: Dispatcher [employer] Areli Jeffries cp4 IheonunekwuMichelle Tawney, RN RN tm6
[2023-04-14 23:38] VITALS: BP 118/78; TEMP 98.7; O2SAT 96
== END ==
LOC: ER 20:14
DX: B34.9 Viral infection, unspecified (principal); Z11.52 Encounter for screening for COVID-19
CPT/HCPCS: 71045; 87635; 87804

== ENCOUNTER 2023-06-21 06:30 | Emergency (ER) | payer SELFPAY ==
[2023-06-21] MEDS ORDERED: ONDANSETRON 4 MG/2 ML VIAL ONE (07:04)
[2023-06-21] MEDS ORDERED: NA CHLORIDE 0.9% 1,000 ML ONE (07:05)
[2023-06-21] MEDS ORDERED: FAMOTIDINE 20 MG/2 ML VIAL IV ONE (07:32)
[2023-06-21] MEDS ORDERED: KETOROLAC 30 MG/ML INJ ONE (07:32)
[2023-06-21 07:40] LABS: Absolute Eosinophils 0.1 K/uL (0-0.5); Absolute Lymphocytes (CBC) 2.2 K/uL (0.7-4.9); Absolute Monocytes 0.6 K/uL (0.1-1.3); Absolute Neutrophil 9.4 K/uL (1.8-8.0); Basophils % 0.3 % (0-1.3); Eosinophils % 0.7 % (0-4.4); Hematocrit 41.9 % (36.0-45.0); Hemoglobin 14.2 g/dL (12.0-15.0); Lymphocytes % 17.9 % (15.3-44.8); MCH 29.5 pg (27.0-35.0); MCHC 33.8 g/dL (32.0-36.0); MCV 87.2 fL (80-100); MPV 8.3 fL (7.6-11.3); Monocytes % 5.1 % (3.3-12.3); Platelets 240 thou/uL (152-406); Red Cell Distribution Width 13.1 % (12.1-15.2); Specific Gravity 1.026 (1.005-1.030)
[2023-06-21 07:45] LABS: Specific Gravity 1.026 (1.005-1.030); Urine Bacteria <20 /HPF (<20); Urine Bilirubin NEGATIVE (Negative); Urine Blood 1+ (Negative); Urine Clarity Extremely Turbid (Clear); Urine Color Light-Yellow (Yellow); Urine Culture Reflex Order NOT NEEDED; Urine Glucose NEGATIVE (Negative); Urine Ketones NEGATIVE (Negative); Urine Microscopic Reflex YN ORDER UMIC; Urine Mucus Slight /HPF (None Seen); Urine Nitrite NEGATIVE (Negative); Urine Protein NEGATIVE (Negative); Urine RBC <5 /HPF (None Seen); Urine Urobilinogen Normal (Normal); Urine WBC <5 /HPF (<5); Urine pH 5.5 (5.0-7.0)
[2023-06-21 08:00] LABS: Albumin 3.8 g/dL (3.4-5.0); Anion Gap 7.8 mEq/L (5.0-15.0); Bilirubin Total 0.6 mg/dL (0.2-1.0); Globulin 3.7 g/dL (2.3-3.5); Potassium 3.8 mEq/L (3.5-5.1); Protein, Total 7.5 g/dL (6.4-8.2)
--- NOTE | 2023-06-21 08:31 | RAD REPORT ---
EXAM DESCRIPTION: CTAbdomen Pelvis W Contrast - 06/21/2023 8:15 am CLINICAL HISTORY: Abdominal pain. ABD PAIN COMPARISON: Abdomen Pelvis W Contrast dated 05/08/2022; Abdomen Pelvis W Contrast dated 07/20/2021 TECHNIQUE: Biphasic CT imaging of the abdomen and pelvis was performed with 100 ml non-ionic IV cont rast. All CT scans are performed using dose optimization technique as appropriate and may include automated exposure control or mA/KV adjustment according to patient size. FINDINGS: The lung bases are clear. The liver demonstrates diffuse fatty infiltration. Cholecystectomy clips. Spleen, pancreas, adrenal g lands and kidneys are within normal limits. No bowel obstruction, free air, free fluid or abscess. Moderate inflammation is seen surrounding sple ike flexure of the colon in the left upper quadrant. Several diverticular present in this region. Mil d sigmoid diverticulosis coli. The appendix is normal. No evidence of significant lymphadenopathy. No suspicious bony findings. IMPRESSION: Moderate inflammation surrounding the splenic flexure of the colon for several diverticu la are present. This most likely represents diverticulitis. No abscess seen. Diffuse fatty liver.
--- NOTE | 2023-06-21 08:36 | ER ---
Nurse's Notes [facility] Name: Tish Martinez Age: 33 yrs Sex: Female : 1990 Arrival Date: 06/21/2023 Time: 06:30 Bed 13 Private MD: Diagnosis: Diverticulitis of large intestine without perforation or abscess without bleeding Presentation: 06/20 06:45 Chief complaint: Patient states: Generalized abdominal pain onset yesterday. Pt reports as6 having diarrhea yesterday and nausea today. Pt states that the pain is a stabbing pain and radiates to her back. Coronavirus screen: Client denies travel out of the [place] in the last 14 days. At this time, the client does not indicate any symptoms associated with coronavirus-19. Ebola Screen: Patient denies travel to an Ebola-affected area in the 21 days before illness onset. No symptoms or risks identified at this time. Initial Sepsis Screen: Does the patient meet any 2 criteria? No. Patient's initial sepsis screen is negative. Does the patient have a suspected source of infection? No. Patient's initial sepsis screen is negative. Risk Assessment: Do you want to hurt yourself or someone else? Patient reports no desire to harm self or others. Onset of symptoms was June 20, 2023. 06:45 Method Of Arrival: Ambulatory as6 06:45 Acuity: DANIEL 3 as6 Historical: - Allergies: 06:46 Vitamin; as6 - Home Meds: 06:46 None [Active]; as6 - PMHx: 06:46 None; as6 - PSHx: 06:46 Cholecystectomy; Ligation of fallopian tube; Tonsillectomy; as6 - Immunization history:: Adult Immunizations up to date. - Infectious Disease History:: Denies. - Social history:: Smoking status: Patient denies any tobacco usage or history of. Screenin:13 [facility] ED Fall Risk Assessment (Adult) History of falling in the last 3 months, ld1 including since admission No falls in past 3 months (0 pts). Abuse screen: Denies threats or abuse. Denies injuries from another. Nutritional screening: No deficits noted. Tuberculosis screening: No symptoms or risk factors identified. Assessment: 07:11 General: Appears in no apparent distress. uncomfortable, Behavior is calm, cooperative, ld1 appropriate for age. Pain: Complains of pain in abdomen Pain does not radiate. Pain currently is 8 out of 10 on a pain scale. Quality of pain is described as throbbing, Pain began suddenly. Neuro: Level of Consciousness is awake, alert, obeys commands, Oriented to person, place, time, situation. Cardiovascular: Capillary refill < 3 seconds Patient's skin is warm and dry. Respiratory: Airway is patent Respiratory effort is even, unlabored. GI: Abdomen is round non-distended, Bowel sounds present X 4 quads. Abd is soft Abdomen is tender to palpation in suprapubic area, right lower quadrant and left lower quadrant. : No signs and/or symptoms were reported regarding the genitourinary system. EENT: No signs and/or symptoms were reported regarding the EENT system. Derm: No signs and/or symptoms reported regarding the dermatologic system. Musculoskeletal: No signs and/or symptoms reported regarding the musculoskeletal system. 08:55 Reassessment: Patient appears in no apparent distress at this time. No changes from ld1 previously documented assessment. Patient and/or family updated on plan of care and expected duration. Pain level reassessed. Patient is alert, oriented x 3, equal unlabored respirations, skin warm/dry/pink. Vital Signs: 06:45 BP 131 / 109; Pulse 89; Resp 18; Temp 98.7; Pulse Ox 100% on R/A; Weight 81.65 kg; as6 Height 5 ft. 0 in. ; Pain 10/10; 07:11 BP 123 / 84; Pulse 75; Resp 18; Pulse Ox 96% on R/A; Pain 8/10; ld1 08:07 BP 135 / 66; Pulse 76; Resp 18; Pulse Ox 96% on R/A; ld1 08:55 BP 129 / 68; Pulse 74; Resp 18; Pulse Ox 100% on R/A; ld1 06:45 Body Mass Index 35.15 (81.65 kg, 152.4 cm) as6 06:45 Pain Scale: Adult as6 07:11 Pain Scale: Adult ld1 ED Course: 06:35 Patient arrived in ED. jj6 06:40 Jase South MD is Attending Physician. sp4 06:46 Triage completed. as6 06:47 Arm band placed on Patient placed in an exam room, on a stretcher. as6 06:52 Bel Hernandez, RN is Primary Nurse. kd4 07:04 Inserted saline lock: 20 gauge in left antecubital area, using aseptic technique. kd4 07:04 Initial lab(s) drawn, by me, sent to lab. Urine collected: clean catch specimen, clear. kd4 07:11 Urinalysis w/ reflexes Sent. ld1 07:13 Patient has correct armband on for positive identification. Placed in gown. Bed in low ld1 position. Call light in reach. Side rails up X2. monitoring coordinator on. Pulse ox on. NIBP on. Door closed. Noise minimized. Warm blanket given. 07:13 No provider procedures requiring assistance completed. ld1 07:14 Attending Physician role handed off by Jase South MD ec2 07:14 Kai Hammond MD is Attending Physician. ec2 08:15 CT Abd/Pelvis - IV Contrast Only In Process Unspecified. EDMS 08:44 Primary Nurse role handed off by Bel Hernandez, BILL jl7 08:55 Marika Parks, BILL is Primary Nurse. ld1 08:56 Provided Education on: medication. ld1 08:56 IV discontinued, intact, bleeding controlled, No redness/swelling at site. ld1 Administered Medications: 07:11 Drug: NS 0.9% IV 1000 ml IV at 1 bolus Per protocol; 1000 mL bolus Route: IV; Rate: 1 ld1 bolus; Site: left antecubital; 07:11 Drug: Ondansetron IVP 4 mg IVP once; over 2 minutes Route: IVP; Site: left antecubital; ld1 07:39 Drug: Famotidine IVP 10 mg IVP once; dilute with 10 mL 0.9% NaCl; give over 2 minutes ld1 Route: IVP; Site: left antecubital; 07:39 Drug: Ketorolac IVP 15 mg IVP once Route: IVP; Site: left antecubital; ld1 Medication: 07:13 VIS not applicable for this client. ld1 Outcome: 08:35 Discharge ordered by . ec2 08:56 Discharged to home ambulatory, with family, ld1 08:56 Condition: stable 08:56 Discharge instructions given to patient, family, Instructed on discharge instructions, follow up and referral plans. medication usage, Demonstrated understanding of instructions, follow-up care, medications, Prescriptions given X 08:56 Patient left the ED. ld1 Signatures: Dispatcher [employer] Raheel Rodriguez RN RN jl7 Marika Parks RN RN ld1 Tammy Morganj6 Joshua Huffman RN RN as6 Jase South MD MD sp4 Kai Hammond MD MD ec2 Bel Hernandez RN RN kd4
--- NOTE | 2023-06-21 08:36 | EDPHYS ---
Physician Documentation [facility] Name: Tish Martinez Age: 33 yrs Sex: Female : 1990 Arrival Date: 06/21/2023 Time: 06:30 Bed 13 Private MD: ED Physician Kai Hammond HPI: 06/20 07:20 This 33 yrs old Female presents to ER via Ambulatory with complaints of ec2 Abdominal Pain. 07:20 Patient arrives today for generalized abdominal pain with associated nausea, decreased ec2 p.o. intake as well as some diarrhea. Patient reports that she started having symptoms yesterday. Patient reports decreased p.o. intake. Denies any cough and cold symptoms, denies urinary complaints. Patient reports significant medical problems. . Historical: - Allergies: 06:46 Vitamin; as6 - Home Meds: 06:46 None [Active]; as6 - PMHx: 06:46 None; as6 - PSHx: 06:46 Cholecystectomy; Ligation of fallopian tube; Tonsillectomy; as6 - Immunization history:: Adult Immunizations up to date. - Infectious Disease History:: Denies. - Social history:: Smoking status: Patient denies any tobacco usage or history of. ROS: 07:20 Constitutional: as per hpi ec2 Exam: 07:20 Constitutional: GEN: NAD Head: atraumatic Eyes: EOMI Ears: External ears are ec2 normal. CV: regular rate LUNGS: no respiratory distress ABD: non-distended, soft, no guarding, not rigid, generally tender SKIN: no evidence of rashes MSK: no evidence of trauma NEURO: moves all extremities equally Vital Signs: 06:45 BP 131 / 109; Pulse 89; Resp 18; Temp 98.7; Pulse Ox 100% on R/A; Weight 81.65 kg; as6 Height 5 ft. 0 in. ; Pain 10/10; 07:11 BP 123 / 84; Pulse 75; Resp 18; Pulse Ox 96% on R/A; Pain 8/10; ld1 08:07 BP 135 / 66; Pulse 76; Resp 18; Pulse Ox 96% on R/A; ld1 08:55 BP 129 / 68; Pulse 74; Resp 18; Pulse Ox 100% on R/A; ld1 06:45 Body Mass Index 35.15 (81.65 kg, 152.4 cm) as6 06:45 Pain Scale: Adult as6 07:11 Pain Scale: Adult ld1 MDM: 06:42 Patient medically screened. sp4 07:20 Data reviewed: vital signs. ED course: Patient arrives today for evaluation of ec2 abdominal discomfort along with decreased p.o. intake. Examination remarkable for abdominal findings as above. Will obtain lab work, urine studies, treat the patient's symptoms with crystalloid and Zofran. Considering gastroenteritis, doubt appendicitis. Patient with history of cholecystectomy, doubt gallbladder pathology or CBD pathology. 07:59 ED course: CBC shows minimal leukocytosis, urine is noninfectious appearing. Urine ec2 testing is negative. Pending metabolic profile . 08:19 ED course: Metabolic profile is reassuring, lipase within normal ranges. Pending CT ec2 imaging. . 08:35 ED course: CT imaging shows possible early diverticulitis, started antibiotics and have ec2 her follow-up outpatient. Patient otherwise well-appearing in no acute distress. Patient discharged home. Return precautions given . 06/20 06:41 Order name: CBC with Diff; Complete Time: 07:58 sp4 06/20 06:41 Order name: CMP; Complete Time: 08:18 sp4 06/20 06:41 Order name: Lipase; Complete Time: 08:18 sp4 06/20 06:41 Order name: Test, Urine; Complete Time: 07:58 sp4 06/20 06:41 Order name: Urinalysis w/ reflexes; Complete Time: 07:58 sp4 06/20 07:59 Order name: CT Abd/Pelvis - IV Contrast Only; Complete Time: 08:35 ec2 06/20 06:41 Order name: IV Saline Lock; Complete Time: 07:11 sp4 06/20 06:41 Order name: Labs collected and sent; Complete Time: 07:11 sp4 Administered Medications: 07:11 Drug: NS 0.9% IV 1000 ml IV at 1 bolus Per protocol; 1000 mL bolus Route: IV; Rate: 1 ld1 bolus; Site: left antecubital; 07:11 Drug: Ondansetron IVP 4 mg IVP once; over 2 minutes Route: IVP; Site: left antecubital; ld1 07:39 Drug: Famotidine IVP 10 mg IVP once; dilute with 10 mL 0.9% NaCl; give over 2 minutes ld1 Route: IVP; Site: left antecubital; 07:39 Drug: Ketorolac IVP 15 mg IVP once Route: IVP; Site: left antecubital; ld1 Disposition Summary: 06/21/23 08:35 Discharge Ordered Notes: Location: Home ec2 Condition: Stable ec2 Diagnosis - Diverticulitis of large intestine without perforation or abscess without bleeding ec2 Followup: ec2 - With: Private Physician - When: - Reason: Re-evaluation by your physician Discharge Instructions: - Discharge Summary Sheet ec2 - Diverticulitis, [id number] ec2 Forms: - Work release form ec2 - Family Work Release ec2 - Medication Reconciliation Form ec2 - Thank You Letter ec2 - Antibiotic Education ec2 - Prescription Opioid Use ec2 - Patient Portal Instructions ec2 - Leadership Thank You Letter ec2 Prescriptions: - Augmentin 875-125 mg Oral tablet - take 1 tablet ORAL route every 12 hours for 7 days; 14 tablet; Refills: 0, ec2 Product Selection Permitted - Zofran 4 mg Oral Tablet - take 1 tablet ORAL route every 12 hours As needed; 20 tablet; Refills: 0, ec2 Product Selection Permitted Signatures: Dispatcher [employer] Marika Buchanan RN RN ld1 Joshua Huffman RN RN as6 Jase South MD MD sp4 Kai Hammond MD MD ec2 Corrections: (The following items were deleted from the chart) 08:00 08:00 Abdomen Pelvis W [id number] ordered. EDMS EDMS
[2023-06-21 10:52] VITALS: TEMP 98.7; O2SAT 100
[2023-06-21 11:24] VITALS: BP 129/68
== END 2023-06-21 08:56 | disposition home or self-care (01) ==
LOC: ER 06:30
DX: K57.32 Diverticulitis of large intestine without perforation or abscess without bleeding (principal); Z88.8 Allergy status to other drugs, medicaments and biological substances
CPT/HCPCS: 36415; 74177; 80053; 81001; 81025; 83690; 85025; J2405; J7030; Q9967

== ENCOUNTER 2023-09-09 18:01 | Emergency (ER) | payer SELFPAY ==
[2023-09-09] MEDS ORDERED: DOXYCYCLINE 100 MG CAP PO ONE (18:23)
[2023-09-09] MEDS ORDERED: TDAP (DIPHTH,PERTUSS(ACELL),TET VAC) 0.5 ML VIAL IMVAC ONE (18:24)
[2023-09-09] MEDS ORDERED: HYDROCODONE/APAP 5/325 MG TAB ONE (18:24)
--- NOTE | 2023-09-09 19:40 | ER ---
Nurse's Notes [facility] Name: Tish Martinez Age: 33 yrs Sex: Female : 1990 Arrival Date: 09/09/2023 Time: 18:01 Bed 14 Private MD: Diagnosis: Puncture wound without foreign body of right thigh Presentation: 09/08 18:12 Chief complaint: Patient states[place] a catfish nati. as6 has been pulled out but known if some of it is still in there. Coronavirus screen: At this time, the client does not indicate any symptoms associated with coronavirus-19. Ebola Screen: No symptoms or risks identified at this time. Initial Sepsis Screen: Does the patient meet any 2 criteria? No. Patient's initial sepsis screen is negative. Does the patient have a suspected source of infection? No. Patient's initial sepsis screen is negative. Risk Assessment: Do you want to hurt yourself or someone else? Patient reports no desire to harm self or others. Onset of symptoms was September 09, 2023. 18:12 Acuity: DANIEL 4 as6 18:12 Method Of Arrival: Ambulatory as6 Triage Assessment: 18:10 General: Appears uncomfortable, obese, Behavior is calm, cooperative, appropriate for bp age. Pain: Complains of pain in lateral aspect of right thigh. Injury Description: Puncture sustained to lateral aspect of right thigh. 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 - Infectious Disease History:: Denies. - Social history:: Smoking status: Patient denies any tobacco usage or history of. Screenin:10 [facility] ED Fall Risk Assessment (Adult) History of falling in the last 3 months, bp including since admission No falls in past 3 months (0 pts) Confusion or Disorientation No (0 pts) Intoxicated or Sedated No (0 pts) Impaired Gait No (0 pts) Mobility Assist Device Used No (0 pt) Altered Elimination No (0 pt) Score/Fall Risk Level 0 - 2 = Low Risk. Abuse screen: Denies threats or abuse. Denies injuries from another. Nutritional screening: No deficits noted. Tuberculosis screening: No symptoms or risk factors identified. Assessment: 18:10 General: Appears uncomfortable, obese, Behavior is calm, cooperative, appropriate for bp age. Pain: Complains of pain in lateral aspect of right thigh. Neuro: No deficits noted. Cardiovascular: No deficits noted. Respiratory: No deficits noted. Injury Description: Puncture sustained to lateral aspect of right thigh. Vital Signs: 18:12 BP 118 / 67; Pulse 77; Resp 18; Temp 97.6; Pulse Ox 99% ; Weight 79.38 kg; Height 5 ft. as6 0 in. ; Pain 10/10; 19:53 BP 114 / 65; Pulse 74; Resp 18; Temp 97.6; Pulse Ox 99% ; cp4 18:12 Body Mass Index 34.18 (79.38 kg, 152.4 cm) as6 18:12 Pain Scale: Adult as6 ED Course: 18:05 Patient arrived in ED. gm2 18:05 Stacy Francis FNP-C is PHCP. kb 18:06 Tremaine Moran MD is Attending Physician. kb 18:10 Patient has correct armband on for positive identification. bp 18:14 Triage completed. as6 18:14 Arm band placed on right wrist. as6 18:21 Franklin Anders RN is Primary Nurse. bp 18:28 Femur Right XRAY In Process Unspecified. EDMS 19:16 Primary Nurse role handed off by Franklin Anders RN as6 19:35 Areli Lozada is Primary Nurse. cp4 19:55 Provided Education on: puncture wound. cp4 19:55 No provider procedures requiring assistance completed. Patient did not have IV access cp4 during this emergency room visit. Administered Medications: 18:27 Drug: Boostrix Tdap IM 0.5 ml IM once; as a single dose Route: IM; Site: right deltoid; bp 19:55 Follow up: Response: No adverse reaction cp4 18:27 Drug: Doxycycline PO 100 mg PO once Route: PO; bp 19:55 Follow up: Response: No adverse reaction cp4 18:27 Drug: HYDROcodone-acetaminophen PO 5 mg-325 mg 1 tabs PO once Route: PO; bp 19:54 Follow up: Response: No adverse reaction; Pain is decreased cp4 Medication: 19:56 VIS not applicable for this client. cp4 Outcome: 19:40 Discharge ordered by . gorge 19:55 Discharged to home ambulatory, cp4 19:55 Condition: stable 19:55 Discharge instructions given to patient, Instructed on discharge instructions, follow up and referral plans. medication usage, 19:56 Patient left the ED. cp4 Signatures: Dispatcher [employer] EDSC Stacy Francis, [employer] SECONDARY SCHOOL TEACHER-Franklin Gonzalez, RN RN Joshua Hodges RN RN as6 Areli Lozada cp4 Chasity Diaz gm
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
--- NOTE | 2023-09-09 19:47 | RAD REPORT ---
EXAM DESCRIPTION: RAD - Femur Right - 09/09/2023 6:26 pm CLINICAL HISTORY: r/o FB;Pain COMPARISON: No comparisons TECHNIQUE: Right femur, 2 views. FINDINGS: No fracture is identified. There is no dislocation or periosteal reaction noted. No acute or suspicious bony finding. IMPRESSION: Negative right femur examination.
[2023-09-09 20:14] VITALS: BP 114/65; TEMP 97.6; O2SAT 99
== END 2023-09-09 19:56 | disposition home or self-care (01) ==
LOC: ER 18:01
DX: S71.131A Puncture wound without foreign body, right thigh, initial encounter (principal)
CPT/HCPCS: 96372; 99284

== ENCOUNTER 2024-04-24 11:51 | Emergency (ER) | payer SELFPAY ==
[2024-04-24 12:24] LABS: Absolute Basophils 0.1 K/uL (0-0.5); Absolute Eosinophils 0.2 K/uL (0-0.5); Absolute Lymphocytes (CBC) 2.2 K/uL (0.7-4.9); Absolute Monocytes 0.4 K/uL (0.1-1.3); Absolute Neutrophil 3.4 K/uL (1.8-8.0); Basophils % 0.8 % (0-1.3); Eosinophils % 2.7 % (0-4.4); Hemoglobin 14.7 g/dL (12.0-15.0); Lymphocytes % 35.5 % (15.3-44.8); MCH 30.9 pg (27.0-35.0); MCHC 35.9 g/dL (32.0-36.0); MCV 86.1 fL (80-100); MPV 8.2 fL (7.6-11.3); Monocytes % 5.7 % (3.3-12.3); Neutrophils % 55.3 % (41.7-73.7); Nucleated Red Blood Cells % 0.1 % (0-0); Platelets 256 thou/uL (152-406); RBC Red Blood Cell Count 4.76 M/uL (3.86-4.86); Red Cell Distribution Width 13.1 % (12.1-15.2)
[2024-04-24 12:36] LABS: Specific Gravity 1.019 (1.005-1.030); Sqamous Epithelial 20-50 /HPF (None Seen); Urine Bacteria None Seen /HPF (<20); Urine Bilirubin NEGATIVE (Negative); Urine Blood Negative (Negative); Urine Clarity Extremely Turbid (Clear); Urine Color Light-Yellow (Yellow); Urine Culture Reflex Order NOT NEEDED; Urine Glucose NEGATIVE (Negative); Urine Ketones NEGATIVE (Negative); Urine Microscopic Reflex YN ORDER UMIC; Urine Mucus Slight /HPF (None Seen); Urine Nitrite NEGATIVE (Negative); Urine Protein NEGATIVE (Negative); Urine RBC <5 /HPF (None Seen); Urine Urobilinogen Normal (Normal); Urine pH 6.5 (5.0-7.0)
[2024-04-24] MEDS ORDERED: NA CHLORIDE 0.9% 1,000 ML ONE (12:44)
[2024-04-24] MEDS ORDERED: METHYLPREDNISOLONE 125 MG INJ ONE (12:44)
[2024-04-24] MEDS ORDERED: predniSONE 20 MG TAB ONE (12:44)
[2024-04-24] MEDS ORDERED: FAMOTIDINE 20 MG/2 ML VIAL IV ONE (12:44)
[2024-04-24] MEDS ORDERED: DIPHENHYDRAMINE 50 MG/ML VIAL ONE (12:44)
[2024-04-24 13:29] LABS: Albumin 3.5 g/dL (3.4-5.0); Anion Gap 7.8 mEq/L (5.0-15.0); Bilirubin Total 0.5 mg/dL (0.2-1.0); Globulin 3.4 g/dL (2.3-3.5); Potassium 3.8 mEq/L (3.5-5.1); Protein, Total 6.9 g/dL (6.4-8.2)
[2024-04-24] MEDS ORDERED: CEFTRIAXONE 1000 MG/VIAL ONE (13:48)
--- NOTE | 2024-04-24 14:01 | EDPHYS ---
Physician Documentation [facility] Name: Tish Martinez Age: 34 yrs Sex: Female : 1990 Arrival Date: 04/24/2024 Time: 11:51 Bed 9 Private MD: ED Physician Juan Tian HPI: 04/24 13:56 This 34 yrs old Female presents to ER via Ambulatory with complaints of jolly Allergic Reaction, Facial Swelling. 13:56 The patient presents with localized swelling, rash, redness of skin. Onset: The jolly symptoms/episode began/occurred just prior to arrival, this morning. Associated signs and symptoms: The patient has no apparent associated signs or symptoms. Possible causes: The patient has no known obvious cause for the symptoms. At home the patient or guardian has treated the symptoms with nothing. Severity of symptoms: At their worst the symptoms were mild moderate in the emergency department the symptoms have improved mildly. The patient has experienced a previous episode. 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 - Infectious Disease History:: Denies. - Social history:: Smoking status: Patient denies any tobacco usage or history of. ROS: 13:56 Constitutional: Negative for fever, chills, and weight loss, ENT: Negative for injury, jolly pain, and discharge, Neck: Negative for injury, pain, and swelling, Cardiovascular: Negative for chest pain, palpitations, and edema, Respiratory: Negative for shortness of breath, cough, wheezing, and pleuritic chest pain, Abdomen/GI: Negative for abdominal pain, nausea, vomiting, diarrhea, and constipation, Back: Negative for injury and pain, : Negative for injury, bleeding, discharge, and swelling, MS/Extremity: Negative for injury and deformity, Neuro: Negative for headache, weakness, numbness, tingling, and seizure, Psych: Negative for depression, anxiety, suicide ideation, homicidal ideation, and hallucinations, Allergy/Immunology: Negative for hives, rash, and allergies, Endocrine: Negative for neck swelling, polydipsia, polyuria, polyphagia, and marked weight changes, Hematologic/Lymphatic: Negative for swollen nodes, abnormal bleeding, and unusual bruising, 13:56 Eyes: Positive for itching, pain, redness, of the right eyebrow, right upper eyelid, right lower eyelid, left eyebrow, left upper eyelid and left lower eyelid, Exam: 13:56 Constitutional: This is a well developed, well nourished patient who is awake, alert, jolly and in no acute distress. ENT: Nares patent. No nasal discharge, no septal abnormalities noted. Tympanic membranes are normal and external auditory canals are clear. Oropharynx with no redness, swelling, or masses, exudates, or evidence of obstruction, uvula midline. Mucous membranes moist. Neck: Trachea midline, no thyromegaly or masses palpated, and no cervical lymphadenopathy. Supple, full range of motion without nuchal rigidity, or vertebral point tenderness. No Meningismus. Chest/axilla: Normal chest wall appearance and motion. Nontender with no deformity. No lesions are appreciated. Cardiovascular: Regular rate and rhythm with a normal S1 and S2. No gallops, murmurs, or rubs. Normal PMI, no JVD. No pulse deficits. Respiratory: Lungs have equal breath sounds bilaterally, clear to auscultation and percussion. No rales, rhonchi or wheezes noted. No increased work of breathing, no retractions or nasal flaring. Abdomen/GI: Soft, non-tender, with normal bowel sounds. No distension or tympany. No guarding or rebound. No evidence of tenderness throughout. Back: No spinal tenderness. No costovertebral tenderness. Full range of motion. Skin: Warm, dry with normal turgor. Normal color with no rashes, no lesions, and no evidence of cellulitis. MS/ Extremity: Pulses equal, no cyanosis. Neurovascular intact. Full, normal range of motion., bilateral aka Neuro: Awake and alert, GCS 15, oriented to person, place, time, and situation. Cranial nerves II-XII grossly intact. Motor strength 5/5 in all extremities. Sensory grossly intact. Cerebellar exam normal. Normal gait. Psych: Awake, alert, with orientation to person, place and time. Behavior, mood, and affect are within normal limits. 13:56 Head/face: Noted is rash, that is erythematous, swelling, that is mild, tenderness, that is mild, 13:56 Eyes: Periorbital structures: swelling, that is moderate, bilaterally, Vital Signs: 12:18 BP 138 / 74; Pulse 74; Resp 16; Temp 97.8; Pulse Ox 100% ; Pain 5/10; ll1 13:49 BP 112 / 73; Pulse 67; Resp 15; Pulse Ox 98% ; jl7 14:26 BP 121 / 63; Pulse 60; Resp 17; Pulse Ox 99% on R/A; ld1 12:18 Pain Scale: Adult ll1 MDM: 11:54 Medical Screening Exam initiated [facility] 04/24 11:56 Order name: CBC with Diff; Complete Time: 13:[address] [facility] 04/24 11:56 Order name: Comprehensive Metabolic Panel; Complete Time: 13:[address] [facility] 04/24 11:56 Order name: Urinalysis w/ reflexes; Complete Time: 13:[address] [facility] 04/24 11:56 Order name: PREGU; Complete Time: 13:[address] [facility] 04/24 12:24 Order name: Labs - recollect needed: recollect green top; Complete Time: 13:04 bd Administered Medications: 12:58 Drug: NS 0.9% IV 1000 ml IV at 1000 ml once; to be given as a bolus over 60 minutes jl7 Route: IV; Rate: 1000 ml; Site: left wrist; 14:32 Follow up: Response: No adverse reaction; IV Status: Completed infusion; IV Intake: jl7 1000ml 12:58 Drug: diphenhydrAMINE IVP 50 mg IVP once Route: IVP; Site: left wrist; jl7 13:57 Follow up: Response: No adverse reaction jl7 13:00 Drug: Famotidine IVP 40 mg IVP once; dilute with 10 mL 0.9% NaCl; give over 2 minutes jl7 Route: IVP; Site: left wrist; 13:58 Follow up: Response: No adverse reaction jl7 13:04 Drug: MethylPrednisoLONE IVP 125 mg IVP once Route: IVP; Site: left wrist; jl7 13:58 Follow up: Response: No adverse reaction jl7 13:04 Drug: predniSONE PO 60 mg PO once Route: PO; jl7 13:58 Follow up: Response: No adverse reaction jl7 13:57 Drug: Rocephin IV 1 grams IV at per protocol once; Given slow IV push per pharmacy jl7 instructions Route: IV; Rate: per protocol; Site: left wrist; 14:32 Follow up: Response: No adverse reaction; IV Status: Completed infusion; IV Intake: [id number] Disposition Summary: 04/24/24 14:00 Discharge Ordered Notes: Location: Home jolly Problem: new jolly Symptoms: have improved jolly Condition: Stable jolly Diagnosis - Other allergy - facial swelling jolly - UTI/ Urinary tract infection, site not specified jolly Followup: jolly - With: Private Physician - When: 2 - 3 days - Reason: Recheck today's complaints, Continuance of care, Re-evaluation by your physician Discharge Instructions: - Discharge Summary Sheet jolly - Drug Allergy, [id number] jolly - Drug Allergy jolly - Dysuria jolly - Food Allergy jolly - Urinary Tract Infection, Adult jolly - Urinary Tract Infection, Adult, Dsxy-ma-Pnag jolly - Allergies, Adult, [id number] [facility] Forms: - Medication Reconciliation Form jolly - Antibiotic Education jolly - Prescription Opioid Use jolly - Patient Portal Instructions [facility] - Leadership Thank You Letter jolly - Work release form ld1 - Family Work Release ld1 Prescriptions: - cefdinir 300 mg Oral capsule - take 1 capsule ORAL route 2 times per day for 5 days; 10 capsule; Refills: 0, [facility] Product Selection Permitted - Benadryl 25 mg Oral capsule - take 2 capsule ORAL route every 6 hours As needed; 3 tablet; Refills: 0, [facility] Product Selection Permitted - Pepcid 20 mg Oral tablet - take 1 tablet ORAL route every 12 hours for 21 days; 42 tablet; Refills: 0, [facility] Product Selection Permitted - Prednisone 20 mg Oral Tablet - take 2 tablets ORAL route once daily for 5 days; 10 tablet; Refills: 0, Product [facility] Selection Permitted Signatures: Dispatcher [employer] Solange Chris Corey, MD MD cha Leal, Jahala RN RN jl7 Kailey Meng RN RN ll1
--- NOTE | 2024-04-24 14:01 | ER ---
Nurse's Notes [facility] Name: Tish Martinez Age: 34 yrs Sex: Female : 1990 Arrival Date: 04/24/2024 Time: 11:51 Bed 9 Private MD: Diagnosis: Other allergy-facial swelling;UTI/ Urinary tract infection, site not specified Presentation: 04/24 12:15 Ebola Screen: Patient denies travel to an Ebola-affected area in the 21 days before ll1 illness onset. Risk Assessment: Do you want to hurt yourself or someone else? Patient reports no desire to harm self or others. 12:15 Method Of Arrival: Ambulatory ll1 12:15 Acuity: DANIEL 3 ll1 12:18 Chief complaint: Patient states: Awoke 2-3 days ago with facial swelling after using a ll1 new facial cream. Stopped it, and started using hydrocortisone. Awoke with eyes swollen today. Coronavirus screen: Client denies travel out of the [place] in the last 14 days. At this time, the client does not indicate any symptoms associated with coronavirus-19. Onset: The symptoms/episode began/occurred 2 day(s) ago. Anaphylaxis evaluation, no signs or symptoms of anaphylaxis were noted. Initial Sepsis Screen: Does the patient meet any 2 criteria? No. Patient's initial sepsis screen is negative. Does the patient have a suspected source of infection? No. Patient's initial sepsis screen is negative. Onset of symptoms was April 22, 2024. Triage Assessment: 12:15 General: Appears uncomfortable, Behavior is calm, cooperative, appropriate for age. ll1 Pain: Complains of pain in face Quality of pain is described as burning, aching. Derm: Reports pain, redness, tenderness to face. 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 - Infectious Disease History:: Denies. - Social history:: Smoking status: Patient denies any tobacco usage or history of. Screenin:05 [facility] ED Fall Risk Assessment (Adult) History of falling in the last 3 months, jl7 including since admission No falls in past 3 months (0 pts) Confusion or Disorientation No (0 pts) Intoxicated or Sedated No (0 pts) Impaired Gait No (0 pts) Mobility Assist Device Used No (0 pt) Altered Elimination No (0 pt) Score/Fall Risk Level 0 - 2 = Low Risk Oriented to surroundings, Maintained a safe environment. Abuse screen: Denies threats or abuse. Denies injuries from another. Nutritional screening: No deficits noted. Tuberculosis screening: No symptoms or risk factors identified. Assessment: 14:26 Reassessment: No changes from previously documented assessment. Patient and/or family ld1 updated on plan of care and expected duration. Pain level reassessed. Patient is alert, oriented x 3, equal unlabored respirations, skin warm/dry/pink. Patient states feeling better. 14:31 Respiratory: Airway is patent Respiratory effort is even, unlabored, Breath sounds are jl7 clear bilaterally. Vital Signs: 12:18 BP 138 / 74; Pulse 74; Resp 16; Temp 97.8; Pulse Ox 100% ; Pain 5/10; ll1 13:49 BP 112 / 73; Pulse 67; Resp 15; Pulse Ox 98% ; jl7 14:26 BP 121 / 63; Pulse 60; Resp 17; Pulse Ox 99% on R/A; ld1 12:18 Pain Scale: Adult ll1 ED Course: 11:54 Patient arrived in ED. im 11:54 Juan Tian MD is Attending Physician. jolly 12:14 Arm band placed on. ll1 12:15 Triage completed. ll1 12:16 Comprehensive Metabolic Panel Sent. bc6 12:16 CBC with Diff Sent. bc6 12:16 Initial lab(s) drawn, by de, sent to lab. Inserted saline lock: 22 gauge in left hand, bc6 using aseptic technique. Blood collected. Flushed with 10 mL NS. 12:37 Raheel Billy RN is Primary Nurse. jl7 14:31 No provider procedures requiring assistance completed. IV discontinued, intact, jl7 bleeding controlled, No redness/swelling at site. Pressure dressing applied. 14:32 Patient has correct armband on for positive identification. Provided Education on: jl7 return to ED for worsening symptoms. Administered Medications: 12:58 Drug: NS 0.9% IV 1000 ml IV at 1000 ml once; to be given as a bolus over 60 minutes jl7 Route: IV; Rate: 1000 ml; Site: left wrist; 14:32 Follow up: Response: No adverse reaction; IV Status: Completed infusion; IV Intake: jl7 1000ml 12:58 Drug: diphenhydrAMINE IVP 50 mg IVP once Route: IVP; Site: left wrist; jl7 13:57 Follow up: Response: No adverse reaction jl7 13:00 Drug: Famotidine IVP 40 mg IVP once; dilute with 10 mL 0.9% NaCl; give over 2 minutes jl7 Route: IVP; Site: left wrist; 13:58 Follow up: Response: No adverse reaction jl7 13:04 Drug: MethylPrednisoLONE IVP 125 mg IVP once Route: IVP; Site: left wrist; jl7 13:58 Follow up: Response: No adverse reaction jl7 13:04 Drug: predniSONE PO 60 mg PO once Route: PO; jl7 13:58 Follow up: Response: No adverse reaction jl7 13:57 Drug: Rocephin IV 1 grams IV at per protocol once; Given slow IV push per pharmacy jl7 instructions Route: IV; Rate: per protocol; Site: left wrist; 14:32 Follow up: Response: No adverse reaction; IV Status: Completed infusion; IV Intake: [id number] Medication: 14:32 VIS not applicable for this client. jl7 Intake: 14:32 IV: 1000ml; Total: 1000ml. jl7 14:32 IV: 20ml; Total: 1020ml. jl7 Outcome: 14:00 Discharge ordered by . jolly 14:31 Discharged to home ambulatory, [facility] 14:31 Condition: stable 14:31 Discharge instructions given to patient, family, Instructed on discharge instructions, follow up and referral plans. medication usage, Demonstrated understanding of instructions, follow-up care, medications, Prescriptions given X 4, 14:33 Patient left the ED. jl7 Signatures: Juan Tian MD MD cha Leal, Jahala RN RN jl7 Kailey Meng RN RN ll1 Marika Parks RN RN ld1 Marion Diaz Latasha Yap
[2024-04-24 15:16] VITALS: TEMP 97.8
[2024-04-24 15:19] VITALS: BP 121/63; O2SAT 99
== END 2024-04-24 14:33 | disposition home or self-care (01) ==
LOC: ER 11:51
DX: R22.0 Localized swelling, mass and lump, head (principal); N39.0 Urinary tract infection, site not specified
CPT/HCPCS: 36415; 80053; 81001; 81025; 85025; J0696; J1200; J2919; J7030; J7512

== ENCOUNTER 2024-07-07 02:05 | Emergency (ER) | payer SELFPAY ==
[2024-07-07] MEDS ORDERED: ACETAMINOPHEN 500 MG TAB ONE (03:19)
[2024-07-07] MEDS ORDERED: ONDANSETRON 4 MG/2 ML VIAL ONE (03:19)
[2024-07-07 03:26] LABS: Absolute Lymphocytes (CBC) 1.2 K/uL (0.7-4.9); Absolute Monocytes 0.4 K/uL (0.1-1.3); Absolute Neutrophil 7.7 K/uL (1.8-8.0); Basophils % 0.4 % (0-1.3); Eosinophils % 0.4 % (0-4.4); Hematocrit 41.4 % (36.0-45.0); Hemoglobin 14.5 g/dL (12.0-15.0); Lymphocytes % 12.7 % (15.3-44.8); MCH 29.9 pg (27.0-35.0); MCHC 34.9 g/dL (32.0-36.0); MCV 85.6 fL (80-100); MPV 7.8 fL (7.6-11.3); Monocytes % 4.1 % (3.3-12.3); Neutrophils % 82.4 % (41.7-73.7); Nucleated Red Blood Cells % 0.1 % (0-0); Platelets 314 thou/uL (152-406); RBC Red Blood Cell Count 4.84 M/uL (3.86-4.86); Red Cell Distribution Width 13.3 % (12.1-15.2)
[2024-07-07 03:37] LABS: ALT/SGPT 81 U/L (13-56); AST/SGOT 31 U/L (15-37); Albumin 4.1 g/dL (3.4-5.0); Albumin/Globulin Ratio 1.1 (1.1-1.8); Alkaline Phosphatase 91 U/L (45-117); BUN Blood Urea Nitrogen 9 mg/dL (7-18); Bicarbonate 26 mEq/L (21-32); Bilirubin Total 0.4 mg/dL (0.2-1.0); Globulin 3.9 g/dL (2.3-3.5); Glomerular Filtration Rate 98 ml/min (=/>90); Glucose Level 162 mg/dL (74-106); Sodium Level 137 mEq/L (136-145)
[2024-07-07 03:38] LABS: Bilirubin Direct < 0.2 mg/dL (0-0.2); Bilirubin Indirect, Calculated 0.2 mg/dL (0.2-0.8); Influenza A Ag Negative; Influenza B Ag Negative; SARS-CoV-2 Antigen Rapid Res Negative (Negative); Troponin High Sensitivity < 3.0 pg/mL (<58.9)
--- NOTE | 2024-07-07 03:54 | ER ---
Nurse's Notes [facility] Name: Tish Martinez Age: 34 yrs Sex: Female : 1990 Arrival Date: 07/07/2024 Time: 02:05 Bed 13 Private MD: Diagnosis: Viral syndrome Presentation: 07/07 02:10 Chief complaint: Patient states: CHEST TIGHTNESS OFF AND ON FOR THE PAST THREE DAYS, ha1 NAUSEA, HEADACHE. BUMP ON THE HEAD FOR THE PAST THREE YEARS IT KEEP ON GETTING LARGER. 02:10 Coronavirus screen: Client denies travel out of the [place] in the last 14 days. Ebola ha1 Screen: No symptoms or risks identified at this time. Initial Sepsis Screen: Does the patient meet any 2 criteria? No. Patient's initial sepsis screen is negative. Does the patient have a suspected source of infection? No. Patient's initial sepsis screen is negative. Risk Assessment: Do you want to hurt yourself or someone else? Patient reports no desire to harm self or others. Onset of symptoms was July 07, 2024. 02:10 Method Of Arrival: Ambulatory ha1 02:10 Acuity: DANIEL 2 ha1 Triage Assessment: 02:10 General: Appears uncomfortable, Behavior is cooperative, anxious. Pain: Complains of ha1 pain in HEADACHE AND CHEST PRESSURE Pain does not radiate. Pain currently is 7 out of 10 on a pain scale. Neuro: Level of Consciousness is awake, alert, obeys commands, Oriented to person, place, time, situation. Cardiovascular: Capillary refill < 3 seconds Patient's skin is warm and dry. Respiratory: Airway is patent Respiratory effort is even, unlabored, Respiratory pattern is regular, symmetrical. GI: Abdomen is round obese, Reports nausea. : No signs and/or symptoms were reported regarding the genitourinary system. Derm: Skin is pink, warm \T\ dry. 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 - Infectious Disease History:: Denies. - Social history:: Smoking status: Patient denies any tobacco usage or history of. - Family history:: not pertinent. Screenin:23 [facility] ED Fall Risk Assessment (Adult) History of falling in the last 3 months, cp4 including since admission No falls in past 3 months (0 pts) Confusion or Disorientation No (0 pts) Intoxicated or Sedated No (0 pts) Impaired Gait No (0 pts) Mobility Assist Device Used No (0 pt) Altered Elimination No (0 pt) Score/Fall Risk Level 0 - 2 = Low Risk Oriented to surroundings, Maintained a safe environment, Assessed \T\ reinforced patient's understanding of fall precautions, Hourly rounding (assess needs \T\ fall precautionary measures) done. Abuse screen: Denies threats or abuse. Denies injuries from another. Nutritional screening: No deficits noted. Tuberculosis screening: No symptoms or risk factors identified. Assessment: 03:23 Reassessment: Patient appears in no apparent distress at this time. General: Appears in cp4 no apparent distress. comfortable, Behavior is calm, cooperative, appropriate for age. Pain: Complains of pain in chest Pain does not radiate. Pain currently is 7 out of 10 on a pain scale. Pain began 2-3 days ago. Neuro: Level of Consciousness is awake, alert, obeys commands, Oriented to person, place, time, situation. Cardiovascular: Patient's skin is warm and dry. Rhythm is sinus rhythm. Respiratory: Airway is patent Respiratory effort is even, unlabored. GI: No signs and/or symptoms were reported involving the gastrointestinal system. : No signs and/or symptoms were reported regarding the genitourinary system. EENT: No signs and/or symptoms were reported regarding the EENT system. Derm: No signs and/or symptoms reported regarding the dermatologic system. Musculoskeletal: No signs and/or symptoms reported regarding the musculoskeletal system. Vital Signs: 02:25 BP 117 / 66; Pulse 78; Resp 16; Temp 98.4; Pulse Ox 100% ; Weight 87.09 kg; Height 5 cp4 ft. 0 in. ; Pain 0/10; 03:58 BP 119 / 65; Pulse 76; Resp 18; Pulse Ox 100% ; cp4 02:25 Body Mass Index 37.50 (87.09 kg, 152.4 cm) cp4 02:25 Pain Scale: Adult cp4 ED Course: 02:08 Patient arrived in ED. [email or web address] 02:10 Jordan Mendieta MD is Attending Physician. rt 02:46 Areli Lozada is Primary Nurse. cp4 02:52 Triage completed. ha1 03:04 XRAY Chest (1 view) In Process Unspecified. EDMS 03:23 Bed in low position. Call light in reach. Side rails up X 1. Client placed on cp4 continuous cardiac and pulse oximetry monitoring. NIBP monitoring applied. playground monitor on. Pulse ox on. NIBP on. 03:23 No provider procedures requiring assistance completed. Initial lab(s) drawn, by me, cp4 sent to lab. EKG done, by ED staff, reviewed by Jordan Mendieta MD. Inserted saline lock: 22 gauge in right antecubital area, using aseptic technique. Blood collected. Flushed with 10 mL NS. Patient maintains SpO2 saturation greater than 95% on room air. 03:58 Provided Education on: viral illness. cp4 03:58 intact, bleeding controlled, No redness/swelling at site. Pressure dressing applied. cp4 03:59 Arm band placed on right wrist. Patient placed in waiting room. cp4 Administered Medications: 03:23 Drug: Ondansetron IVP 4 mg IVP once; over 2 minutes Route: IVP; Site: right antecubital;cp4 04:00 Follow up: Response: No adverse reaction cp4 03:23 Drug: Acetaminophen PO 1000 mg PO once Route: PO; cp4 04:00 Follow up: Response: No adverse reaction cp4 Medication: 03:23 VIS not applicable for this client. cp4 Outcome: 03:53 Discharge ordered by . rt 03:58 Discharged to home ambulatory, cp4 03:58 Condition: stable 03:58 Discharge instructions given to patient, Instructed on discharge instructions, follow up and referral plans. Demonstrated understanding of instructions, follow-up care, 03:59 Patient left the ED. cp4 Signatures: Dispatcher [employer] [facility] Tammy Morgan [email or web address] Rocio Banegas RN RN ha1 Jordan Mendieta MD MD rt Areli Lozada cp4
--- NOTE | 2024-07-07 03:54 | EDPHYS ---
Physician Documentation [facility] Name: Tish Martinez Age: 34 yrs Sex: Female : 1990 Arrival Date: 07/07/2024 Time: 02:05 Bed 13 Private MD: ED Physician Jordan Mendieta HPI: 07/07 03:54 This 34 yrs old Female presents to ER via Ambulatory with complaints of Chest rt Tightness, Shortness Of Breath, Body Chills. 03:54 Patient presents to the ED with cough, chest tightness for the past few days. States rt that tonight, she developed chills, generalized malaise. States that she has had a bump on her head that has been present for several years. Denies other acute complaints at this time, symptoms are moderate in severity, no other aggravating or alleviating factors.. 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 - Infectious Disease History:: Denies. - Social history:: Smoking status: Patient denies any tobacco usage or history of. - Family history:: not pertinent. ROS: 03:54 Abdomen/GI: Negative for abdominal pain, nausea, vomiting, diarrhea, and constipation, rt MS/Extremity: Negative for injury and deformity, Skin: Negative for injury, rash, and discoloration, Neuro: Negative for headache, weakness, numbness, tingling, and seizure, 03:54 Constitutional: Positive for chills, malaise, 03:54 Respiratory: Positive for cough, shortness of breath, Exam: 03:54 Constitutional: This is a well developed, well nourished patient who is awake, alert, rt and in no acute distress. Chest/axilla: Normal chest wall appearance and motion. Nontender with no deformity. No lesions are appreciated. Cardiovascular: Regular rate and rhythm with a normal S1 and S2. No gallops, murmurs, or rubs. Normal PMI, no JVD. No pulse deficits. Respiratory: Lungs have equal breath sounds bilaterally, clear to auscultation and percussion. No rales, rhonchi or wheezes noted. No increased work of breathing, no retractions or nasal flaring. Abdomen/GI: Soft, non-tender, with normal bowel sounds. No distension or tympany. No guarding or rebound. No evidence of tenderness throughout. Skin: Warm, dry with normal turgor. Normal color with no rashes, no lesions, and no evidence of cellulitis. MS/ Extremity: Pulses equal, no cyanosis. Neurovascular intact. Full, normal range of motion. Neuro: Awake and alert, GCS 15, oriented to person, place, time, and situation. Cranial nerves II-XII grossly intact. Motor strength 5/5 in all extremities. Sensory grossly intact. Cerebellar exam normal. Normal gait. 03:54 Head/face: Apparent cyst on the top of the head, no overlying skin changes. 03:54 ECG was reviewed by the Attending Physician. rt Vital Signs: 02:25 BP 117 / 66; Pulse 78; Resp 16; Temp 98.4; Pulse Ox 100% ; Weight 87.09 kg; Height 5 cp4 ft. 0 in. ; Pain 0/10; 03:58 BP 119 / 65; Pulse 76; Resp 18; Pulse Ox 100% ; cp4 02:25 Body Mass Index 37.50 (87.09 kg, 152.4 cm) cp4 02:25 Pain Scale: Adult cp4 MDM: 02:27 Medical Screening Exam initiated rt 03:56 Differential diagnosis: Flu, viral syndrome, pneumonia. HEART Score: History: Slightly rt Suspicious (0), ECG: Normal (0), Age: < or = 45 years (0), Risk Factors: No Risk Factors Known (0), Troponin: < or = 1 x Normal Limit (0), Total Score = 0. Data reviewed: vital signs, nurses notes, lab test result(s), EKG, radiologic studies. I considered the following discharge prescriptions or medication management in the emergency department Medications were administered in the Emergency Department. See MAR. Independent interpretation of the following test(s) in the Emergency Department X-Ray: My interpretation is No consolidation seen on my interpretation of x-ray images. Test considered but Not performed: CT: Low suspicion for pulmonary embolus, low risk by PE RC criteria, CT angiogram not indicated. Counseling: I had a detailed discussion with the patient and/or guardian regarding the historical points, exam findings, and any diagnostic results supporting the discharge/admit diagnosis, lab results, radiology results, the need for outpatient follow up, to return to the emergency department if symptoms worsen or persist or if there are any questions or concerns that arise at home. Response to treatment: the patient's symptoms have markedly improved after treatment. 07/07 02:33 Order name: Basic Metabolic Panel; Complete Time: 03:39 rt 07/07 02:33 Order name: CBC with Diff; Complete Time: 03:39 rt 07/07 02:33 Order name: LFT's; Complete Time: 03:39 rt 07/07 02:33 Order name: Troponin HS; Complete Time: 03:39 rt 07/07 02:33 Order name: COVID-19 Ag + Flu A+B Ag; Complete Time: 03:39 rt 07/07 02:33 Order name: XRAY Chest (1 view) rt 07/07 02:33 Order name: EKG; Complete Time: 02:33 rt 07/07 02:33 Order name: Cardiac monitoring; Complete Time: 02:34 rt 07/07 02:33 Order name: EKG - Nurse/Tech; Complete Time: 03:18 rt 07/07 02:33 Order name: IV Saline Lock; Complete Time: 03:18 rt 07/07 02:33 Order name: Labs collected and sent; Complete Time: 03:18 rt 07/07 02:33 Order name: O2 Per Protocol; Complete Time: 02:34 rt 07/07 02:33 Order name: O2 Sat Monitoring; Complete Time: 02:34 rt EC:54 Rate is 81 beats/min. Rhythm is regular, Normal Sinus Rhythm with No ectopy. QRS [place] rt is Normal. CT interval is normal. QRS interval is normal. QT interval is normal. No Q waves. T waves are Normal. No ST changes noted. Interpreted by me. Administered Medications: 03:23 Drug: Ondansetron IVP 4 mg IVP once; over 2 minutes Route: IVP; Site: right antecubital;cp4 04:00 Follow up: Response: No adverse reaction cp4 03:23 Drug: Acetaminophen PO 1000 mg PO once Route: PO; cp4 04:00 Follow up: Response: No adverse reaction cp4 Disposition Summary: 07/07/24 03:53 Discharge Ordered Notes: Location: Home rt Problem: new rt Symptoms: have improved rt Condition: Stable rt Diagnosis - Viral syndrome rt Followup: rt - With: Private Physician - When: 2 - 3 days - Reason: Discharge Instructions: - Discharge Summary Sheet rt - Viral Illness, Adult rt Forms: - Medication Reconciliation Form rt - Antibiotic Education rt - Prescription Opioid Use rt - Patient Portal Instructions rt - Leadership Thank You Letter rt Signatures: Dispatcher [employer] EDMS Rocio Banegas RN RN ha1 Jordan Mendieta MD MD rt Areli Lozada cp4 Corrections: (The following items were deleted from the chart) 02:33 02:33 BASIC METABOLIC PANEL+C.LAB.BRZ ordered. EDMS EDMS 02:33 02:33 CBC+H.LAB.BRZ ordered. EDMS EDMS 02:33 02:33 HEPATIC FUNCTION+C.LAB.BRZ ordered. EDMS EDMS 02:33 02:33 Troponin High Sensitivity+C.LAB.BRZ ordered. EDMS EDMS 02:33 02:33 COVID-19 Ag + Flu A+B Ag+I.LAB.BRZ ordered. EDMS EDMS
--- NOTE | 2024-07-07 06:17 | RAD REPORT ---
EXAM: XR Chest 1 View AP HISTORY: dyspnea COMPARISON: Chest 1 View AP 04/14/2023 TECHNIQUE: Chest 1 View AP FINDINGS: Trachea midline. Heart size and pulmonary vessels within normal limits. Lungs clear without evidence of consolidation, mass, or significant pulmonary edema. No significant pleural effusion or pneumothorax. Mild symmetric bilateral lower lungs/chest density most likely represents overlying breast/chest wall attenuation artifact. Bones unremarkable. IMPRESSION: Unremarkable chest radiograph. Electronically signed by: Wing Hayes MD 07/07/2024 03:47 AM CDT Due to temporary technical issues with the PACS/[employer] reporting system, reports are being lucho d by the in-house radiologist without review as a courtesy to ensure prompt reporting. The interpreting radiologist is fully responsible for the content of the report. Transcribed Date/Time: 07/07/2024 6:17 AM
--- NOTE | 2024-07-08 12:11 | EKG ---
Test Date: 2024-07-07 Test Time: 03:16:12 [employer] Clerk: RODOLFO MEASUREMENT RESULTS: Intervals: Rate: 81 HI: 144 QRSD: 72 QT: 358 QTc: 415 [place]: P: 37 HI: 144 QRS: 51 T: 39 INTERPRETIVE STATEMENTS: Normal sinus rhythm Normal ECG Compared to ECG 07/20/2021 13:21:00 No significant changes Electronically Signed On 07-08-24 12:07:47 CDT by Parvez Tian
[2024-07-09 02:16] VITALS: TEMP 98.4; O2SAT 100
[2024-07-09 02:17] VITALS: BP 119/65
== END 2024-07-07 03:59 | disposition home or self-care (01) ==
LOC: ER 02:05
DX: B34.9 Viral infection, unspecified (principal); Z11.52 Encounter for screening for COVID-19
CPT/HCPCS: 36415; 71045; 80048; 80076; 84484; 85025; 87428; 93005; 96374; 99285; J2405